=== PATIENT | male | born 1975 | race Caucasian/White ===

== ENCOUNTER 2024-06-26 11:08 | Outpatient (AMB) | payer OTHER, SELFPAY ==
--- NOTE | 2024-06-26 11:10 | MHC.PC.OV ---
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 Intake Note: patient here for new patient visit Home Care Administrator Required: No Allergies Penicillins Allergy (Mild, Verified 06/26/24 11:38) Hives Medication List - Last Reconciled 06/26/24 by Kailee Wilson, ADMINISTRATIVE SUPPORT COORDINATOR cetirizine (Zyrtec) 10 mg PO DAILY PRN Tobacco use date assessed: 06/26/24 Dental Screening Dental Screen Date: 06/26/24 Did you have a dental visit in the last 12 months?: Yes Did you have a dental problem in the last 6 months where you did not have access to dental care?: No Was dental information given to patient?: Patient has dentist HPI HPI Comments History of Present Illness Details 49-year-old male presents to establish care. Prior PCP? - Dr Hanson Volcano Last office visit/CPE - 6-7 years Labs - 04/2024 for his employer Acute issue(s) - Left Achilles tendon rupture; resulted from playing football in early April; wears ortho boot; had surgical repair of the left achilles on 04/19/2024 at [place]. Currently doing PT twice weekly. Followed by Dr. Mccray, [facility], [place], [place]. Past Medical History - Sinusitis - IBS - Left Achilles tendon rupture Surgical History - Right rotator cuff surgery - Left Achilles tendon surgical repair Family History - Dad: Hyperlipidemia - Mom: Skin cancer - PGM: Diabetes Social History - Nonsmoker. Does not vape. Drinks 2-3 beer/vodka weekly. Denies recreational drug use - Has been making healthy dietary choices. Exercises routinely. Generally sleep well Health maintenance - Last eye exam was 08/2023 - Last dental visit was in 04/2024 - Last tetanus vaccine was in 12/01/2023 - He has not been vaccinated for shingles; recommend shingles vaccine; he may get the vaccine from a local pharmacy - Has not been vaccinated for the flu this season; declines vaccination - He has never had a colonoscopy [facility] Medical History (Updated 06/26/24 @ 12:13 by Merle Garrido) IBS (irritable bowel syndrome) Sinusitis Surgical History (Updated 06/26/24 @ 12:17 by Merle Garrido) S/P right rotator cuff repair Family History (Updated 06/26/24 @ 11:33 by Merle Garrido) Father High cholesterol Paternal Grandmother Diabetes Mother Skin cancer Brother Skin cancer Social History Housing: House Patient Tobacco Use Status: Never used Tobacco e-Cigarette/Vaping Use: Never Used Second Hand Smoke Exposure: No service: No Current occupational status: employed 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 1. Little interest or pleasure in doing things: not at all 2. Feeling down, depressed, or hopeless: not at all 3. Trouble falling or staying asleep, or sleeping too much: not at all 4. Feeling tired or having little energy: not at all 5. Poor appetite or overeating: not at all 6. Feeling bad about yourself - or that you are a failure or have let yourself or your family down: not at all 7. Trouble concentrating on things, such as reading the newspaper or watching television: not at all 8. Moving or speaking so slowly that other people could have noticed. Or the opposite - being so fidgety or restless that you have been moving around a lot more than usual: not at all 9. Thoughts that you would be better off or of hurting yourself in some way: not at all Total score: 0 Depression Screening Interpretation: Negative Depression Screening Done: Yes 50863 - PHQ-9 Billing: Yes Source: Developed by Drs. Arsen Perez, Malka Grider, Manpreet Johnson and colleagues, with an educational zehra from [employer]. Thrive Questionnaire Date Thrive assessed: 06/26/24 I am a: Patient What is your living situation today?: I have a steady place to live Within the past 12 months, did the food you bought not last and you didn't have the money to get more?: Never true Within the past 12 months, did you worry whether your food would run out before you got money to buy more?: Never true Do you have trouble paying for medicines?: No Do you have trouble getting transportation to medical appointments?: No Do you have trouble paying your heating and electricity bill?: No Do you have trouble taking care of your child, family member or friend?: No Do you have trouble with day-to-day activities such as bathing, preparing meals, shopping, managing finances, etc.?: No Are you currently unemployed and looking for a job?: No Are you interested in more education?: No Please select the resources that you would like help with: None Currently or been in a relationship where the following occur: No concerns reported THRIVE Score: 0 AUDIT C Alcohol Use Questionnaire (AUDIT-C) 1. How often do you have a drink containing alcohol?: 2-3 times a week 2. How many drinks containing alcohol do you have on a typical day when you are drinking?: 1 or 2 3. How often do you have six or more drinks on one occasion?: Less than monthly Total Score: 4 Score Reviewed/Action Taken: Yes JENIFFER-7 AMB Questionnaire JENIFFER-7 Date JENIFFER - 7 assessed: 06/26/24 Feeling nervous, anxious, or on edge: 0 = Not at all Not being able to stop or control worryin = Not at all Worrying too much about different things: 0 = Not at all Trouble relaxin = Not at all Being so restless that it is hard to sit still: 0 = Not at all Becoming easily annoyed or irritable: 0 = Not at all Feeling afraid as if something awful might happen: 0 = Not at all Total JENIFFER-7 score (0-4 normal; 5-9 mild; 10-14 moderate; 15-21 severe): 0 Source: Developed by Drs. Arsen Perez, Malka Grider, Manpreet Johnson and colleagues, with an educational zehra from [employer]. JENIFFER-7 Assessment Billing JENIFFER-7 Assessment Tool: JENIFFER-7 Assessment 77400 Review of Systems Const Details: Denies chills, Denies fatigue, Denies fever(s), Denies headache(s) and Denies weakness HEENT Denies change in vision, Denies dizziness, Denies headache(s), Denies hearing loss, Denies nasal congestion, Denies sinus pain, Denies sinus pressure and Denies sore throat Card Denies chest pain, Denies lightheadedness, Denies dyspnea and Denies other (palpitations) Resp Denies cough, Denies dyspnea and Denies wheezing GI Denies abdominal pain, Denies melena, Denies hematochezia, Denies change in bowel habits, Denies dyspepsia and Denies nausea Denies hematuria and Denies dysuria Musc Denies abnormal gait, Denies myalgias, Denies arthralgias, Denies numbness and Denies tingling Skin/Breast Denies rash, Denies unusual bruising and Denies wounds Neuro Denies abnormal gait, Denies dizziness, Denies headache(s), Denies memory loss, Denies numbness, Denies Sensory deficit (Neuro), Denies tingling and Denies weakness Psych Denies anxiety, Denies depression and Denies memory loss Endo Denies cold intolerance, Denies fatigue, Denies heat intolerance, Denies polydipsia and Denies polyuria Bernabe/Lymph Denies easy bleeding and Denies easy bruising Aller/Immun Denies wheezing Physical exam (Primary Care) Vital Signs: Last Vital Signs Temp 98.5 F 06/26/24 11:17 Pulse 75 06/26/24 11:17 Resp 16 06/26/24 11:17 BP 130/80 06/26/24 11:17 Pulse Ox 97 06/26/24 11:17 Oxygen Delivery Method Room Air 06/26/24 11:17 BMI result Body Mass Index 30.3 Tobacco/Smoking Status: Tobacco use Status Tobacco use date assessed 06/26/24 06/26/24 11:16 Patient Tobacco Use Status Never used Tobacco 06/26/24 11:16 e-Cigarette/Vaping Use Never Used 06/26/24 11:16 PHQ-9: PHQ-9 Score PHQ-9: Total score 0 06/26/24 11:41 Depression Screening Interpretation: Negative Thrive Assessment: Date of Thrive Assessment Date Thrive assessed 06/26/24 06/26/24 11:12 Currently or been in a relationship where the following occur: No concerns reported Const Other: General: no acute distress, well developed, alert and awake Nutritional Appearance: well nourished Orientation/consciousness: patient oriented x3 HENMT Head: Yes normocephalic and Yes atraumatic Ears: hearing grossly normal bilaterally and TM's normal bilaterally General nose exam: Normal external nose present and Normal nares present Mouth: Normal oral and palatal mucosa present and moist mucous membranes Teeth and gingiva: dentition normal Throat: Yes oropharynx normal Eyes Pupils: Equal, round and reactive pupils present and Pupil accommodation reflex normal EOM: EOMs intact bilaterally Neck Neck: Yes normal visual inspection, Yes no lymphadenopathy and Yes trachea midline Thyroid: Thyroid normal Carotids: no bruits Lymphatic: no lymphadenopathy noted Chest Chest palpation & inspection: normal inspection of the chest Resp Effort & Inspection: normal respiratory effort Auscultation: clear to auscultation bilaterally Cardio Rate: regular rate Rhythm: regular rhythm Heart sounds: S1 normal heart sound present, S2 normal heart sound present, no gallops, no murmurs and no rubs Bruits: no abdominal aortic bruits and no carotid bruits GI Palpation (GI): No Abdominal aortic bruit present, Soft to palpation, nontender, No hepatosplenomegaly present and No Rebound tenderness present Auscultation: normal bowel sounds General: Yes no CVA tenderness Back/Spine/Pelvis Back: no CVA tenderness Cervical Spine: cervical ROM normal and No Cervical spine tenderness Thoracic/Lumbar Spine: thoraco-lumbar ROM normal, No pain with thoraco-lumbar ROM, No thoracic spinal tenderness and No lumbar spinal tenderness Skin General: warm and dry. Normal skin color. Normal skin turgor Lesions: no lesions Rashes: no rashes Trauma: no lacerations or abrasions Wounds: no wounds Nails: normal Neuro General: patient oriented x3, gait normal and CN's II-XI intact bilaterally Cranial nerves: Yes Equal, round and reactive pupils present Cognition (Neuro): normal cognition Gait exam (Neuro): Normal gait present Motor exam (neuro): 5/5 motor strength present throughout Sensory Exam: No Sensory deficit (Neuro) Deep tendon reflexes (DTR's): Right patellar reflex intensity grade: 2+ and Left patellar reflex intensity grade: 2+ Extrem General: Yes normal to inspection, No edema and No calf tenderness Psych Appearance: grossly normal Affect: normal affect Attitude: cooperative Thought process: Normal thought process present Coding Level of Care Code New Pt Prev Care 40-64y(25006) Diagnoses Normal physical examination, routine Z00.00 Colon cancer screening Z12.11 Prostate cancer screening Z12.5 Rupture of left Achilles tendon S86.012A Laboratory tests ordered as part of a complete physical exam (CPE) Z00.00 Additional Codes JENIFFER-7 Assessment Billing - JENIFFER-7 Assessment Tool: JENIFFER-7 Assessment 83535 ([id number]) PHQ-9 - 29240 - PHQ-9 Billing: Yes ([id number]) Assessment & Plan Assessment & Plan (1) Normal physical examination, routine: Code(s): Z00.00 - Encounter for general adult medical examination without abnormal findings Category: Medical Plan: No significant functional limitations noted. Healthy diet and routine exercise encouraged. Advised to get fasting lab work done 2-3 days before next visit. Follow-up in 2-3 weeks for telehealth visit for labs review or sooner with symptoms or concerns. Verbalized understanding and agreed with the plan. (2) Colon cancer screening: Code(s): Z12.11 - Encounter for screening for malignant neoplasm of colon Category: Medical Plan: He has never had a colonoscopy. Referred to [facility] gastroenterology for a colonoscopy. (3) Prostate cancer screening: Code(s): Z12.5 - Encounter for screening for malignant neoplasm of prostate Category: Medical Plan: PSA lab ordered. (4) Rupture of left Achilles tendon: Code(s): S86.012A - Strain of left Achilles tendon, initial encounter Category: Medical Plan: No acute symptoms. Currently wearing Ortho boots. Continue PT and follow with Orthopedics as planned. (5) Laboratory tests ordered as part of a complete physical exam (CPE): Code(s): Z00.00 - Encounter for general adult medical examination without abnormal findings Category: Medical Plan: Fasting labs ordered as part of a complete physical exam. Advised to fast for at least 10 hours before getting labs drawn. May drink water Verbalized understanding and agreed with treatment plan. Orders: Orders Complete Blood Count Auto Diff Today Z00.00 - Encounter for general adult medical examination without abnormal findings Comprehensive Mereta. Panel Fast Today Z00.00 - Encounter for general adult medical examination without abnormal findings UA CC w/rflx Micro + Cult Today Z00.00 - Encounter for general adult medical examination without abnormal findings PSA, Ultra Sensitive Today Z12.5 - Encounter for screening for malignant neoplasm of prostate Lipid Panel Today Z00.00 - Encounter for general adult medical examination without abnormal findings TSH reflex Free T4 Today Z00.00 - Encounter for general adult medical examination without abnormal findings Microalbumin, Random (w Creat) Today Z00.00 - Encounter for general adult medical examination without abnormal findings Referrals Gastroenterology Referral Z12.11 - Encounter for screening for malignant neoplasm of colon
--- OUTSIDE RECORDS SUMMARY | 2024-06-26 11:10 | XMS_ITS | Data Portability ---
Author Organization [place] [facility] Roberto Banuelos AONE Morgan Address [address] [place] [address] Care Team Providers Care Litigation Services Manager Name Role Phone LISA LAM Referring Provider [phone] JULIO CÉSAR KISER Software Release Engineer [phone] Assessment Encounter Date Assessment Date Assessment LastModified by Organization Details LastModified Time 04/18/2024 04/18/2024 He sustained a left Achilles tendon rupture during a work event 1 day ago. We discussed operative versus nonoperative management. He understands the outcomes are near identical. He is leaning toward surgical repair however he will talk with his fianc??e. He was consented for a left Achilles tendon repair tentatively for 04/19/2024. If he does not wish to proceed with this date we could tentatively perform this on 05/03/2024. Additionally he may opt to treat this nonoperatively. Today he was placed into a tall cam boot with heel lifts. He can remove this at this time for shower and sleep if desired. Postoperatively he will be on oxycodone, 5 tablets, Tylenol, Toradol and aspirin for DVT prophylaxis. These will be sent to the pharmacy today. Postoperatively he will be nonweightbearing for 2 weeks in a splint and then will transition back to the cam boot with heel lifts. Will plan to follow-up 2 weeks postoperatively. He will contact the office immediately should he decide not to proceed with surgery tomorrow Risks of surgery and alternatives to surgery were discussed with the patient. These risks include but are not limited to damage to nerves or blood vessels, infection, wound healing problems, chronic pain, stiffness, symptomatic hardware, nonunion, malunion, need for additional surgery, blood clot or pulmonary embolism, anesthesia, heart attack, stroke, . The patient understood these risks and alternatives and elected to proceed with operative interventions. Informed consent was obtained. Patient was prescribed a tall cam boot for above diagnosis. The patient is ambulatory but has weakness and/or instability which requires stabilization from this semi-rigid / rigid orthosis to improve their function. Patient was seen and evaluated by Dominique Ly PA-C in indirect conjunction with Documenting Provider: Ethel Mccray MD He/She agrees with history, physical examination, tests/diagnostic imaging, and treatment plan [email or web address] Not available 04/18/2024 11:22:04 05/02/2024 05/02/2024 The patient is doing well two weeks post operatively following his left achilles tendon repair. He was transitioned to a tall cam boot today with heel lifts. The boot is to be treated like a cast and will not be removed at this time. They may weightbear as tolerated in the cam boot with or without an assistive device. Continue with DVT prophylaxis for an additional 2 weeks. Plan to follow up in 4 weeks for repeat evaluation, imaging not needed Patient was seen and evaluated by Dominique Ly PA-C in indirect conjunction with Documenting Provider: Ethel Mccray MD He/She agrees with history, physical examination, tests/diagnostic imaging, and treatment plan [email or web address] Not available 05/02/2024 10:25:18 05/30/2024 05/30/2024 He is doing well now 6 weeks following their achilles tendon repair. A lift will be removed today with initiation of physical therapy. A referral and location recommendations were provided at today's visit. The remaining removed at 8 weeks post operatively. Once 10 weeks post operatively they may begin to wean to regular footwear with the assistance of physical therapy. Plan to follow up in 6 weeks for repeat evaluation, imaging not needed at that time Not available 06/02/2024 18:56:09 Plan of Treatment Reminders Order Date Submit Date Provider Last Modified By Organization Details Last Modified Time Details Appointments POST-OP 2024 09:00A M Ethel Mccray MD Not available Not available Not available Lab None recorded. Referral None recorded. Procedures None recorded. Surgeries orthopaed ic surgery (SURG) 2023 024 [facility] Not available 04/22/2024 10:34:30 Imaging XR, tibia + fibula, 2 view 2023 024 [email or web address], [address], [place], [address], 04/18/2024 11:58:10 Medication Orders None recorded. Patient TargetsNo targets recorded. Patient Instructions Encounter Date Encounter Id Patient Instructions Last Modified By Organization Details Last Modified Time 04/18/2024 [id number] X-rays of the left tib-fib were obtained which are negative for acute fracture. [email or web address] Not available 04/18/2024 11:28:34 05/02/2024 [id number] X-rays of the left tib-fib were obtained which are negative for acute fracture. [email or web address] Not available 05/02/2024 10:24:07 05/30/2024 [id number] X-rays of the left tib-fib were obtained which are negative for acute fracture. [email or web address] Not available 05/30/2024 08:21:35 Reason for Referral None Reported. Problems Name Problem SNOMED Code Status Onset Date Resolution Date Notes Provider Name and Address Organization Details Recorded Time Rupture of left Achilles tendon 757296623607541 00 Active 2023 DOMINIQUE LY PA-C [address], [place], [address], [place] [facility] 4 11:22:18 Pain in left lower limb 698667974 Active 2023 DOMINIQUE LY PA-C [address], [place], [address], [place] [facility] 4 10:24:08 Problem Notes None recorded. Procedures Surgical History Date Name Laterality Status Provider Name and Address Organization Details Recorded Time 04/19/20 ORTHOPAEDIC SURGERY (SURG) completed Margaret Johnson [facility] 04/22/2024 10:34:38 Imaging Results None recorded. Procedure Notes None recorded. Medical Equipment None Reported. Allergies Allergen ID Allergen Name Allergen Category Reaction Reaction Severity Criticality Documentation Date Start Date Code Code System Note Provider Name and Address Organization Details Recorded Time 96227 Medicinal product containin g penicilli n and acting as antibacte rial agent (product) medicatio n Not available Not available Not available 04/18/2024 03507 05 SNOMED Javon Grant null, [facility] 4 10:34:02 Medications Name Sig Start Date Stop Date Status Note LastModified by Organization Details LastModified Time azithromycin 250 mg tablet TAKE 2 TABLETS BY MOUTH TODAY, THEN TAKE 1 TABLET DAILY FOR 4 DAYS DIRECTED active Not Available Not Available No t Available acetaminophen 500 mg tablet TAKE 2 TABLETS BY MOUTH 3 TIMES A DAY active Not Available Not Available No t Available ketorolac 10 mg tablet TAKE 1 TABLET BY MOUTH EVERY 6 HOURS NEEDED FOR PAIN active Not Available Not Available No t Available triamcinolone acetonide 0.1 % topical ointment APPLY TO AFFECTED AREA UP TO 3 TIMES A DAY NEEDED active Not Available Not Available No t Available Carmen Aspirin 325 mg tablet TAKE 1 TABLET BY MOUTH EVERY DAY FOR 30 DAYS active Not Available Not Available No t Available oxycodone 5 mg tablet TAKE 1 TABLET BY MOUTH EVERY 6 HOURS active Not Available Not Available No t Available Vitals Date Recorded Body height Body mass index (BMI) Body weight Provider Name and Address Organization Details Last Updated DateTime 04/18/2024 162.56 cm 30.9 kg/m2 00186.63 g Javon Juanita [facility] 04/18/2024 10:33:39 Date Recorded Oxygen saturation Oxygen saturation in Arterial blood by Pulse oximetry Heart rate Systolic blood pressure Diastolic blood pressure Provider Name and Address Organization Details Last Updated DateTime 4 99 % 99 % 65 /min 126 mm[Hg] 84 mm[Hg] DOMINIQUE LY PA-C [address], [place], [address], [place] [facility] 4 11:17:46 Date Recorded Body height Body mass index (BMI) Body weight Provider Name and Address Organization Details Last Updated DateTime 05/02/2024 162.56 cm 30.9 kg/m2 45262.63 g Abeba Ellis [place] [facility] 05/02/2024 10:28:01 Date Recorded Body height Body mass index (BMI) Body weight Provider Name and Address Organization Details Last Updated DateTime 05/30/2024 162.56 cm 30.9 kg/m2 59295.[address] [place] [facility] 05/30/2024 09:11:14 Social History None recorded. Functional Status None recorded. Mental Status None recorded. Family History Nothing Reported. Medical History No medical history recorded. Past Encounters Encounter ID Performer Location Encounter Start Date Encounter Closed Date Diagnosis/Indication Diagnosis SNOMED-CT Code Diagnosis ICD10 Code [id number] [facility]ly [facility] [address],[address] [place] [address] 04/18/2024 10:16:30 04/18/2024 11:58:10 Pain in left lower limb 043572845 M79.605 Rupture of left Achilles tendon 9205984938 0669717 S86.012A [id number] Ethel Mccray MD [place] [address] 05/02/2024 10:21:50 05/02/2024 10:51:01 Rupture of left Achilles tendon 5909764062 [id number] S86.012A [id number] Ethel Mccray MD [place] [address] 05/30/2024 09:08:07 05/30/2024 10:02:39 Rupture of left Achilles tendon 8842736389 2466704 S86.012A Health Concerns Section Related Observation LastModified by Organization Detai ls LastModified Time None Recorded Concern Status LastModified by Organization Details LastModified Time None Recorded Advance Directives Directive None Recorded Payers Encounter Date Sequence Insurance Name Policy Number Policy Perez Covered Member ID Perez Member ID Guarantor Name 04/18/2024 1 [facility] [id number] Curtis Lea [id number] Curtis Lea 05/02/2024 LIBERTAD Lea 05/30/2024 [facility]en Venu Notes Date Note Type Note Provider Name and Address Organization Details Recorded Time 04/18/2024 text/html Date of Injury: 04/17/24 Curtis Lea is a 49 year old male who presents today as a walk in patient for evaluation of his left lower extremity. He felt a pop in his calf while running playing football at a work event yesterday. He has been taking ibuprofen with good improvement. 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 He does not smoke. He drinks 3 alcoholic drinks per week. [address], [place], [address], [facility] 04/18/2024 11:28:36 05/02/2024 text/html Date of Injury: 04/17/24 Date of Surgery: 04/19/24 left achilles tendon repair Curtis Lea is a 49 year old male who presents today for his first postoperative appointment.Is overall doing well. He had a mild fall where he caught his toe but did not slam the heel down. He did not notice any popping sensation at the time. He is in very little discomfort and is only requiring Tylenol. He has been taking aspirin as directed. {{He* She}} denies chest pain, shortness of breath, calf pain, calf swelling or fevers. From 04/18/24 (TK): as a walk in patient for evaluation of his left lower extremity. He felt a pop in his calf while running playing football at a work event yesterday. He has been taking ibuprofen with good improvement. 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 He does not smoke. He drinks 3 alcoholic drinks per week. [address], [place], [address], [facility] 05/02/2024 10:52:46 05/30/2024 text/html Date of Injury: 04/17/24 Date of Surgery: 04/19/24 left achilles tendon repair Curtis Lea is a 49 year old male who presents today for follow-up evaluation now approximately 6 weeks postoperatively. He is overall doing well. His pain is a 1-2 out of 10. {{He* She}} denies chest pain, shortness of breath, calf pain, calf swelling or fevers. From 05/02/24 (TK): for his first postoperative appointment.Is overall doing well. He had a mild fall where he caught his toe but did not slam the heel down. He did not notice any popping sensation at the time. He is in very little discomfort and is only requiring Tylenol. He has been taking aspirin as directed. {{He* She}} denies chest pain, shortness of breath, calf pain, calf swelling or fevers. From 04/18/24 (TK): as a walk in patient for evaluation of his left lower extremity. He felt a pop in his calf while running playing football at a work event yesterday. He has been taking ibuprofen with good improvement. 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 He does not smoke. He drinks 3 alcoholic drinks per week. Ethel Mccray MD [address], [place], [address], [place] [facility] 06/02/2024 18:56:20
--- OUTSIDE RECORDS SUMMARY | 2024-06-26 11:11 | XMS_ITS | Continuity of Care Document ---
Author Organization [place] [facility] Roberto Banuelos AONE [facility] Address [address] [place] [address] Care Team Providers Care End Lathe Operator Name Role Phone LAM LISA Referring Provider [phone] JULIO CÉSAR KISER Ice Guard Inspector Assessment Encounter Date Assessment Date Assessment LastModified [...] physical examination, tests/diagnostic imaging, and treatment plan [email or web address] Not available 04/18/2024 11:22:04 Plan of Treatment Reminders Order Date Submit Date Provider Last Modified By Organization Details Last Modified Time Details Appointments POST-OP 2024 09:00A M Ethel Mccray MD Not available Not available Not available Lab None recorded. Referral None recorded. Procedures None recorded. Surgeries orthopaed ic surgery (SURG) 2023 OMA Not available 04/22/2024 10:34:30 Imaging XR, tibia + fibula, 2 view 2023 024 aamoro [facility], [address], [place], [address], 04/18/2024 11:58:10 Medication Orders None recorded. Patient TargetsNo targets recorded. Patient Instructions Encounter Date Encounter Id Patient Instructions Last Modified By Organization Details Last Modified Time 04/18/2024 [id number] X-rays of the left tib-fib were obtained which are negative for acute fracture. [email or web address] Not available 04/18/2024 11:28:34 Reason for Referral None Reported. Problems Name Problem SNOMED Code Status Onset Date Resolution Date Notes Provider Name and Address Organization Details Recorded Time Rupture of left Achilles tendon 233166995102395 00 Active [address], [place], [address], [place] [facility], [facility] 4 11:22:18 Pain in left lower limb 024122444 Active 2023 DOMINIQUE LY PA-C [address], [place], [address], [place] [facility], [facility] 4 10:24:08 Problem Notes None recorded. Procedures Surgical History Date Name Laterality Status Provider Name and Address Organization Details Recorded Time 04/19/20 24 ORTHOPAEDIC SURGERY (SURG) completed Margaret Johnson [facility] 04/22/2024 10:34:38 Imaging Results None recorded. Procedure Notes None recorded. Medical Equipment None Reported. Allergies Allergen ID Allergen Name Allergen Category Reaction Reaction Severity Criticality Documentation Date Start Date Code Code System Note Provider Name and Address Organization Details Recorded Time Medicinal product containin g penicilli n and acting as antibacte rial agent (product) medicatio n Not available Not available Not available 04/18/2024 22551 05 SNOMED Javon Grant null, [facility], P 4 10:34:02 Medications Name Sig Start [...] Updated DateTime 04/18/2024 162.56 cm 30.9 kg/m2 21209.63 g Javon Grant [facility], P 04/18/2024 10:33:39 Date Recorded Oxygen saturation Oxygen saturation in Arterial blood by Pulse oximetry Heart rate Systolic blood pressure Diastolic blood pressure Provider Name and Address Organization Details Last Updated DateTime 4 99 % 99 % 65 /min 126 mm[Hg] 84 mm[Hg] DOMINIQUE LY PA-C [address], [place], [address], [place] [facility], P 11:17:46 Social History None recorded. Functional Status None recorded. Mental Status None recorded. Family History Nothing Reported. Medical History No medical history recorded. Past Encounters Encounter ID Performer Location Encounter Start Date Encounter Closed Date Diagnosis/Indication Diagnosis SNOMED-CT Code Diagnosis ICD10 Code [id number] [facility] [address] [place] [address] 04/18/2024 10:16:30 04/18/2024 11:58:10 Pain in left lower limb 814974536 M79.605 Rupture of left Achilles tendon 2283462553 4547836 S86.012A Health Concerns Section Related Observation LastModified by Organization Detai ls LastModified Time None Recorded Concern Status LastModified by Organization Details LastModified Time None Recorded Payers Encounter Date Sequence Insurance Name Policy Number Policy Perez Covered Member ID Perez Member ID Guarantor Name 04/18/2024 1 [facility] [id number] Curtis Lea [id number] Curtis Lea Notes Date Note Type Note Provider Name [...] with good improvement. 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 He does not smoke. He drinks 3 alcoholic drinks per week. DOMINIQUE LY PA-C [address], [place], [address], [place] [facility], P 04/18/2024 11:28:36
--- OUTSIDE RECORDS SUMMARY | 2024-06-26 11:11 | XMS_ITS | Continuity of Care Document ---
Author Organization [place] [facility] Roberto Banuelos AONE [place] Address [address] [place] [address] Care Team Providers Care Head Bucker Name Role Phone LISA LAM Referring Provider [phone] JULIO CÉSAR KISER Pricing Supervisor Assessment Encounter Date Assessment Date Assessment LastModified by Organization Details LastModified Time 05/02/2024 05/02/2024 The patient is doing well [...] MD He/She agrees with history, physical examination, tests/diagnosti c imaging, and treatment plan [email or web address] Not available 05/02/2024 10:25:18 Plan of Treatment Reminders Order Date Submit Date Provider Last Modified By Organization Details Last Modified Time Details Appointments POST-O P 025 09:00AM Ethel Mccray MD Not available Not available Not available Lab None record ed. Referral None record ed. Procedures None record ed. Surgeries None record ed. Imaging None record ed. Medication Orders None record ed. Patient TargetsNo targets recorded. Patient Instructions Encounter Date Encounter Id Patient Instructions Last Modified By Organization Details Last Modified Time 05/02/2024 [id number] X-rays of the left tib-fib were obtained which are negative for acute fracture. [email or web address] Not available 05/02/2024 10:24:07 Reason for Referral None Reported. Problems Name Problem SNOMED Code Status Onset Date Resolution Date Notes Provider Name and Address Organization Details Recorded Time Rupture of left Achilles tendon 842876521493073 00 Active 2023 DOMINIQUE LY PA-C [address], [place], [address], [place] [facility] [place], [facility] 4 11:22:18 Pain in left lower limb 393442896 Active 2023 DOMINIQUE LY PA-C [address], [place], [address], [place] [facility] [place], [facility] 4 10:24:08 Problem Notes None recorded. Procedures Surgical History Date Name Laterality Status Provider Name and Address Organization Details Recorded Time 04/19/20 ORTHOPAEDIC SURGERY (SURG) completed Margaret Johnson [facility] [place], P 04/22/2024 10:34:38 Imaging Results None recorded. Procedure Notes None recorded. Medical Equipment None Reported. Allergies Allergen ID Allergen Name Allergen Category Reaction Reaction Severity Criticality Documentation Date Start Date Code Code System Note Provider Name and Address Organization Details Recorded Time 41513 Medicinal product containin g penicilli n and acting as antibacte rial agent (product) medicatio n Not available Not available Not available 04/18/2024 47702 05 SNOMED Javon bundy, [facility] [place], P 4 10:34:02 Medications Name Sig Start [...] Updated DateTime 05/02/2024 162.56 cm 30.9 kg/m2 [address]230.[address] [facility] [place], P 05/02/2024 10:28:01 Social History None recorded. Functional Status None recorded. Mental Status None recorded. Family History Nothing Reported. Medical History No medical history recorded. Past Encounters Encounter ID Performer Location Encounter Start Date Encounter Closed Date Diagnosis/Indication Diagnosis SNOMED-CT Code Diagnosis ICD10 Code [id number] [facility] [address] [place] [address], [address] [place] [address] 04/18/2024 10:16:30 04/18/2024 11:58:10 Pain in left lower limb 261117990 M79.605 Rupture of left Achilles tendon 0209961066 0111359 S86.012A [id number] Ethel Mccray MD [facility] [address] [address] 05/02/2024 10:21:50 05/02/2024 10:51:01 Rupture of left Achilles tendon 2292222742 4001759 S86.012A Health Concerns Section Related Observation LastModified by Organization Detai ls LastModified Time None Recorded Concern Status LastModified by Organization Details LastModified Time None Recorded Payers Encounter Date Sequence Insurance Name Policy Number Policy Perez Covered Member ID Perez Member ID Guarantor Name 05/02/2024 LIBERTAD Lowry Curtis Lea Notes Date Note Type Note Provider Name and Address Organization Details Recorded Time 05/02/2024 text/html Date of Injury: 04/17/24 Date [...] with good improvement. 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 He does not smoke. He drinks 3 alcoholic drinks per week. DOMINIQUE LY PA-C [address], [place], [address], [place] [facility] [place], [facility] 05/02/2024 10:52:46
--- OUTSIDE RECORDS SUMMARY | 2024-06-26 11:11 | XMS_ITS ---
Author Name [facility] Organization Unknown History of Medication Use Medication Directions Dispensed Refills Start Date End Date Stat us azithromycin 250 mg tablet TAKE 2 TABLETS BY MOUTH TODAY, THEN TAKE 1 TABLET DAILY FOR 4 DAYS DIRECTED 06/04/2024 07/09/9999 active Carmen Aspirin 325 mg tablet TAKE 1 TABLET BY MOUTH EVERY DAY FOR 30 DAYS 06/04/2024 07/09/9999 active oxycodone 5 mg tablet TAKE 1 TABLET BY MOUTH EVERY 6 HOURS 05/04/2024 07/09/9999 active aspirin 325 mg tablet TAKE 1 TABLET BY MOUTH EVERY DAY FOR 30 DAYS 05/04/2024 07/09/9999 active ketorolac 10 mg tablet TAKE 1 TABLET BY MOUTH EVERY 6 HOURS NEEDED FOR PAIN 05/04/2024 07/09/9999 active triamcinolone acetonide 0.1 % topical ointment APPLY TO AFFECTED AREA UP TO 3 TIMES A DAY NEEDED 05/04/2024 07/09/9999 active acetaminophen 500 mg tablet TAKE 2 TABLETS BY MOUTH 3 TIMES A DAY 05/04/2024 07/09/9999 active Allergies Allergen Reaction Severity Comment Documented Date Source Statu s PENICILLINS [facility] Problems Problem Status Onset Date Problem Type Date of Resoluti on Source Pain in left lower limb active 2024-05-02 ProblemAct [facility] Rupture of left Achilles tendon active 2024-04-18 ProblemAct [facility]
--- OUTSIDE RECORDS SUMMARY | 2024-06-26 11:11 | XMS_ITS | Continuity of Care Document ---
Author Organization [facility] Roberto Banuelos AONE [place] Address [address] [place] [address] Care Team Providers Care Cloud Infrastructure Architect Name Role Phone LISA LAM Referring Provider JULIO CÉSAR KISER Motorman/Woman [phone] Assessment Encounter Date Assessment Date Assessment LastModified by Organization Details LastModified Time 05/30/2024 05/30/2024 He is doing well now [...] Modified By Organization Details Last Modified Time 05/30/2024 [id number] X-rays of the left tib-fib were obtained which are negative for acute fracture. [email or web address] Not available 05/30/2024 08:21:35 Reason for Referral None Reported. Problems Name Problem SNOMED Code Status Onset Date Resolution Date Notes Provider Name and Address Organization Details Recorded Time Rupture of left Achilles tendon 634522700452340 00 Active 10/10/ 2024 DOMINIQUE BRIONES PA-C [address], [place], [address], [facility] [place], [facility] 4 11:22:18 Pain in left lower limb 282252957 Active 2023 DOMINIQUE BRIONES PA-C [address], [place], [address], [facility] [place], [facility] 4 10:24:08 Problem Notes None recorded. Procedures Surgical History Date Name Laterality Status Provider Name and Address Organization Details Recorded Time 04/19/20 ORTHOPAEDIC SURGERY (SURG) completed Margaret Johnson [facility] 04/22/2024 10:34:38 Imaging Results None recorded. [...] Not available Not available Not available 04/18/2024 16957 05 SNOMED Javon bundy, [facility] [place], [facility] 4 10:34:02 Medications Name Sig Start [...] Updated DateTime 05/30/2024 162.56 cm 30.9 kg/m2 18941.[address] [facility] [place] 05/30/2024 09:11:14 Social History None recorded. Functional Status None recorded. Mental Status None recorded. Family History Nothing Reported. Medical History No medical history recorded. Past Encounters Encounter ID Performer Location Encounter Start Date Encounter Closed Date Diagnosis/Indication Diagnosis SNOMED-CT Code Diagnosis ICD10 Code [id number] Ethel Mccray MD [place] [address] 05/02/2024 10:21:50 05/02/2024 10:51:01 Rupture of left Achilles tendon 6832548170 1940987 S86.012A [id number] Ethel Mccray MD [address] [address] 05/30/2024 09:08:07 05/30/2024 10:02:39 Rupture of left Achilles tendon [id number] [id number] S86.012A Health Concerns Section Related Observation LastModified by Organization Detai ls LastModified Time None Recorded Concern Status LastModified by Organization Details LastModified Time None Recorded Payers Encounter Date Sequence Insurance Name Policy Number Policy Perez Covered Member ID Perez Member ID Guarantor Name 05/30/2024 LIBERTAD Lowry Curtis Lea Notes Date Note Type Note Provider Name and Address Organization Details Recorded Time 05/30/2024 text/html Date of Injury: 04/17/24 Date [...] with good improvement. 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 He does not smoke. He drinks 3 alcoholic drinks per week. Ethel Mccray MD [address], [place], [address], [facility] [place] 06/02/2024 18:56:20
[2024-06-26 11:17] VITALS: BP 130/80; PULSE 75; RESP 16; TEMP 36.9; O2SAT 97; BMI 30.3
== END 2024-06-26 12:05 | disposition home or self-care (01) ==
PROVIDERS: PCP Nurse Practitioner Family; Visit Provider Nurse Practitioner Family
DX: Z00.00 Encounter for general adult medical examination without abnormal findings (principal); Z12.11 Encounter for screening for malignant neoplasm of colon; Z12.5 Encounter for screening for malignant neoplasm of prostate; S86.012A Strain of left Achilles tendon, initial encounter

== ENCOUNTER → 2024-06-26 11:08 | Outpatient (BNVA) | payer OTHER, SELFPAY | PROVIDERS: PCP Nurse Practitioner Family; Visit Provider Nurse Practitioner Family | DX: Z00.00 Encounter for general adult medical examination without abnormal findings (principal); S86.012D Strain of left Achilles tendon, subsequent encounter | CPT/HCPCS: 96127 ==

== ENCOUNTER 2024-07-01 08:30 | Outpatient (REF) | payer OTHER, SELFPAY ==
[2024-07-01 11:21] LABS: Appearance Urine Clear; Color Urine Yellow; Glucose Urine UA Negative (Negative); Leukocyte Esterase Urine Negative (Negative); Nitrite Urine Negative (Negative); PH 5.5 (5.0-9.0); Urine Blood Negative (Negative); Urine Ketones Negative (Negative); Urine Protein Negative (Neg-Trace)
[2024-07-01 11:21] LABS: MANUAL DIFF FLAG NO
[2024-07-01 11:33] LABS: Basophils Percent Auto 0.7 % (0-2); Eosinophils Absolute Auto 0.1 X10*3/uL (0.0-0.4); Hematocrit 39.5 % (42.0-52.0); Hemoglobin 13.9 g/dl (14.0-18.0); Imm Gran Abs Auto 0.05 X10*3/uL (0.00-0.03); Imm Gran Pct Auto 0.9 % (0.0-0.4); Lymphocytes Absolute Auto 2.1 X10*3/uL (1.2-4.9); Lymphocytes Percent Auto 37.2 % (20-40); Mean Corpuscular HGB Conc 35.2 g/dl (31.0-36.0); Mean Corpuscular Hemoglobin 31.7 pg (27.0-33.0); Mean Platelet Volume 10.1 fL (9.4-12.4); Monocytes Absolute Auto 0.6 X10*3/uL (0.1-1.2); Monocytes Percent Auto 10.4 % (2-11); Neutrophils Absolute Auto 2.7 x10*3/uL (2.0-8.3); Neutrophils Percent Auto 48.8 % (45-73); Platelet Count 216 X10*3/uL (160-400); Red Blood Count 4.39 X10*6/uL (4.60-5.80); Red Cell Distribution Width 11.9 % (11.0-16.0); White Blood Count 5.6 X10*3/uL (4.8-10.8)
[2024-07-01 12:08] LABS: Alanine Aminotransferase 55 U/L (0-40); Albumin Level 4.5 g/dL (3.5-5.0); Alkaline Phosphatase 57 U/L (39-117); Anion Gap 10 (12-20); Aspartate Amino Transferase 38 U/L (5-37); Bilirubin Total 0.6 mg/dL (0.0-1.0); Blood Urea Nitrogen 18 mg/dL (9-16); Calcium 9.2 mg/dL (8.4-10.2); Carbon Dioxide 28 mmol/L (22-29); Chloride 108 mmol/L (96-108); Cholesterol 206 mg/dL (<200); Estimated Glomerular Filt Rate > 60; Glucose Fasting 99 mg/dL (60-99); HDL Cholesterol 54 mg/dL (>40); LDL Cholesterol Calculated 127 mg/dL (<100); Sodium 142 mmol/L (135-145); Total Protein 7.8 g/dL (6.5-8.0); Triglycerides 127 mg/dL (<150)
[2024-07-01 12:17] LABS: Creatinine Urine 177.95 mg/dL
[2024-07-01 13:48] LABS: TSH reflex Free T4 1.74 uIU/mL (0.32-4.0)
[2024-07-07 15:24] LABS: PSA, Ultra Sensitive 1.07 ng/mL
== END 2024-07-01 08:31 | disposition home or self-care (01) ==
LOC: HO.WFDLDS 08:30
PROVIDERS: Visit Provider Nurse Practitioner Family
DX: Z00.00 Encounter for general adult medical examination without abnormal findings (principal); Z12.5 Encounter for screening for malignant neoplasm of prostate
CPT/HCPCS: 36415; 80053; 80061; 81003; 82043; 82570; 84153; 84443; 85025

== ENCOUNTER 2024-07-12 11:49 | Outpatient (AMB) | payer OTHER, SELFPAY ==
--- NOTE | 2024-07-12 10:55 | MHC.PC.OV ---
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 He offers no complaints and denies acute symptoms at this time. 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 Current occupational exposures/hazards: No Cognitive needs: No Hearing needs: No Vision needs: Yes Questionnaire Thrive Questionnaire Date Thrive assessed: 06/26/24 I am a: Patient What is your living situation today?: I have a steady place to live Within the past 12 months, did the food you bought not last and you didn't have the money to get more?: Never true Within the past 12 months, did you worry whether your food would run out before you got money to buy more?: Never true Do you have trouble paying for medicines?: No Do you have trouble getting transportation to medical appointments?: No Do you have trouble paying your heating and electricity bill?: No Do you have trouble taking care of your child, family member or friend?: No Do you have trouble with day-to-day activities such as bathing, preparing meals, shopping, managing finances, etc.?: No Are you currently unemployed and looking for a job?: No Are you interested in more education?: No Please select the resources that you would like help with: None Currently or been in a relationship where the following occur: No concerns reported THRIVE Score: 0 JENIFFER-7 AMB Questionnaire JENIFFER-7 Date JENIFFER - 7 assessed: 06/26/24 Source: Developed by Drs. Arsen Perez, Malka Grider, Manpreet Johnson and colleagues, with an educational zehra from [employer]. Review of Systems Const Details: Const Denies chills, Denies fatigue, Denies fever(s), Denies headache(s) and Denies weakness ENT Denies dizziness and Denies headache(s) Card Denies chest pain, Denies lightheadedness, Denies dyspnea and Denies other (Palpitations) Resp Denies cough, Denies dyspnea, Denies wheezing and Denies other ( shortness of breath) GI Denies abdominal pain, Denies melena, Denies hematochezia, Denies change in bowel habits, Denies dyspepsia and Denies nausea Denies hematuria and Denies dysuria Musc Denies abnormal gait, Denies myalgias, Denies arthralgias, Denies numbness and Denies tingling Skin/Breast Denies rash, Denies unusual bruising and Denies wounds Neuro Denies abnormal gait, Denies dizziness, Denies headache(s), Denies memory loss, Denies numbness, Denies Sensory deficit (Neuro), Denies tingling and Denies weakness Psych Denies anxiety, Denies depression, Denies memory loss Endo Denies cold intolerance, Denies fatigue, Denies heat intolerance, Denies polydipsia and Denies polyuria Aller/Immun Denies wheezing Physical exam (Primary Care) Tobacco/Smoking Status: Tobacco use Status Tobacco use date assessed 07/12/24 07/12/24 10:57 Patient Tobacco Use Status Never used Tobacco 07/12/24 10:57 e-Cigarette/Vaping Use Never Used 07/12/24 10:57 Thrive Assessment: Date of Thrive Assessment Date Thrive assessed 06/26/24 07/12/24 10:57 Currently or been in a relationship where the following occur: No concerns reported Const Other: Telehealth visit. No physical exam. Telehealth Telehealth Telehealth Platform: Telephone Location of provider rendering services: practice address Location of patient: address on file Patient Identification confirmed using: Name, : Yes Telehealth method: voice only Patient verbally consented to treatment: Yes Patient verbally consented to billing insurance company: Yes Patient informed of any privacy concerns related to visit: Yes Coding Level of Care Code Tele Est Pt Level 3 (35101) Diagnoses Mild anemia D64.9 Transaminitis R74.01 Hypercholesterolemia E78.00 Time Spent (min) 15 Assessment & Plan Assessment & Plan (1) Mild anemia: Code(s): D64.9 - Anemia, unspecified Category: Medical Plan: Recent RBC and H&H are slightly elevated, 4.39 and 13.9/39.5 respectively; unequivocal. Will repeat CBC and make changes as needed. (2) Transaminitis: Code(s): R74.01 - Elevation of levels of liver transaminase levels Category: Medical Plan: Recent AST and ALT are slightly elevated, 38 and 55 respectively. Likely fatty hepatic steatosis. Healthy diet and routine exercise encouraged; advised to limit fatty foods. Will recheck liver panel; advised to fast for 10-12 hours, may drink water, and get blood work done 2-3 days before his next visit. Follow-up in 3 months or sooner with symptoms or concerns. Verbalized understanding and agreed with treatment plan. (3) Hypercholesterolemia: Code(s): E78.00 - Pure hypercholesterolemia, unspecified Category: Medical Plan: Recent total cholesterol and LDL levels slightly elevated, 206 and 127 respectively. Advised to limit foods high in saturated fat and avoid foods high in trans fat. Routine exercise encouraged. Advised to get fasting lipid panel blood work 2-3 days before his next visit. Verbalized understanding and agreed with the treatment plan. Orders: Orders Complete Blood Count no Diff 3 Months D64.9 - Anemia, unspecified Lipid Panel 3 Months E78.00 - Pure hypercholesterolemia, unspecified Liver Panel 3 Months R74.01 - Elevation of levels of liver transaminase levels
--- OUTSIDE RECORDS SUMMARY | 2024-07-12 13:36 | XMS_ITS | Data Portability ---
Author Organization [facility] Roberto Banuelos AONE [place] Address [address] [place] [address] Care Team Providers Care Money Position Officer Name Role Phone LISA LAM Referring Provider [phone] JULIO CÉSAR KISER Pet Sitter Assessment Encounter Date Assessment Date Assessment LastModified [...] physical examination, tests/diagnostic imaging, and treatment plan [email or web address] Not available 04/18/2024 11:22:04 05/02/2024 05/02/2024 The [...] physical examination, tests/diagnostic imaging, and treatment plan [email or web address] Not available 05/02/2024 10:25:18 05/30/2024 05/30/2024 He [...] at that time Not available 06/02/2024 18:56:09 07/11/2024 07/11/2024 He is now 3 maritza hs postoperatively. He is doing great. He may wean out of the boot completely and into regular shoewear. He may advance to the more strengthening component of his physical therapy protocol. He may continue to gradually advance his activities and begin working on close chain exercises. We discussed that he certainly may ride a bike. He will follow-up in 3 months for repeat evaluation. He does not need any imaging. Not available 07/11/2024 09:55:51 Plan of Treatment Reminders Order Date Submit Date Provider Last Modified By Organization Details Last Modified Time Details Appointments WC FOLLOW-UP 2024 08:30A M Ethel Mccray MD Not available Not available Not available Lab None recorded. Referral None recorded. Procedures None recorded. Surgeries orthopaed ic surgery (SURG) 2023 [facility] Not available 04/22/2024 10:34:30 Imaging XR, tibia + fibula, 2 view 2023 [facility], [address], [place], [address], 04/18/2024 11:58:10 Medication Orders None recorded. Patient TargetsNo targets recorded. Patient Instructions Encounter Date Encounter Id Patient Instructions Last Modified By Organization Details Last Modified Time 04/18/2024 [id number] X-rays of the left tib-fib were obtained which are negative for acute fracture. [email or web address] Not available 04/18/2024 11:28:34 05/02/2024 [id number] X-rays of the left tib-fib were obtained which are negative for acute fracture. Not available 05/02/2024 10:24:07 05/30/2024 [id number] X-rays of the left tib-fib were obtained which are negative for acute fracture. [email or web address] Not available 05/30/2024 08:21:35 07/11/2024 [id number] X-rays of the left tib-fib were obtained which are negative for acute fracture. Not available 07/11/2024 08:22:56 Reason for Referral None Reported. Problems Name Problem SNOMED Code Status Onset Date Resolution Date Notes Provider Name and Address Organization Details Recorded Time Rupture of left Achilles tendon 371835746566231 00 Active 2023 DOMINIQUE LY PA-C [address], [place], [address], [facility] 4 11:22:18 Pain in left lower limb 284244975 Active 2023 DOMINIQUE LY PA-C [address], [place], [address], [facility] 10:24:08 Problem Notes None recorded. Procedures Surgical History Date Name Laterality Status Provider Name and Address Organization Details Recorded Time 04/19/20 ORTHOPAEDIC SURGERY (SURG) completed Margaret Johnson [facility] 04/22/2024 10:34:38 Imaging [...] Not available Not available Not available 04/18/2024 85595 05 SNOMED Javon Wheat [facility], [facility], P 10:34:02 Medications Name Sig Start Date Stop [...] Updated DateTime 04/18/2024 162.56 cm 30.9 kg/m2 [address] [facility] 04/18/2024 10:33:39 Date Recorded Oxygen saturation Oxygen saturation in Arterial blood by Pulse oximetry Heart rate Systolic blood pressure Diastolic blood pressure Provider Name and Address Organization Details Last Updated DateTime 99 % 99 % 65 /min 126 mm[Hg] 84 mm[Hg] DOMINIQUE LY PA-C [address], [facility] [place], [address], [facility] 11:17:46 Date Recorded Body height Body mass index (BMI) Body weight Provider Name and Address Organization Details Last Updated DateTime 05/02/2024 162.56 cm 30.9 kg/m2 74744.[address] [facility] 05/02/2024 10:28:01 Date Recorded Body height Body mass index (BMI) Body weight Provider Name and Address Organization Details Last Updated DateTime 05/30/2024 162.56 cm 30.9 kg/m2 09084.[address] [facility] 05/30/2024 09:11:14 Date Recorded Body height Body mass index (BMI) Body weight Provider Name and Address Organization Details Last Updated DateTime 07/11/2024 162.56 cm 30.9 kg/m2 37061.[address] [facility] 07/11/2024 08:53:08 Social History None recorded. Functional Status None recorded. Mental Status None recorded. Family History Nothing Reported. Medical History No medical history recorded. Past Encounters Encounter ID Performer Location Encounter Start Date Encounter Closed Date Diagnosis/Indication Diagnosis SNOMED-CT Code Diagnosis ICD10 Code [id number] [facility] [address] [place] [address] 04/18/2024 10:16:30 04/18/2024 11:58:10 Pain in left lower limb 667346757 M79.605 Rupture of left Achilles tendon 3786289554 6232216 S86.012A [id number] Ethel Mccray MD [address] [address] 05/02/2024 10:21:50 05/02/2024 10:51:01 Rupture of left Achilles tendon 0059330378 2242056 S86.012A [id number] Ethel Mccray MD [address] [address] 05/30/2024 09:08:07 05/30/2024 10:02:39 Rupture of left Achilles tendon 8330185462 2633469 S86.012A [id number] MD JESSENIA Yun [place] [address] [address] 07/11/2024 08:48:39 07/11/2024 09:13:14 Rupture of left Achilles tendon 6704729667 0771876 S86.012A Health Concerns Section Related Observation LastModified by Organization Detai ls LastModified Time None Recorded Concern Status LastModified by Organization Details LastModified Time None Recorded Advance Directives Directive None Recorded Payers Encounter Date Sequence Insurance Name Policy Number Policy Perez Covered Member ID Perez Member ID Guarantor Name 04/18/2024 1 [facility] [id number] Curtis Lea [id number] Curtis Lea 05/02/2024 [facility] Alen Curtis Lea 05/30/2024 [facility] Curtis Lea 07/11/2024 1 [facility] [id number] Curtis Lea [id number] Curtis Lea Notes Date Note Type [...] good improvement. 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 He does not smoke. He drinks 3 alcoholic drinks per week. DOMINIQUE LY PA-C [address], [place], [address], [place] [facility] 04/18/2024 11:28:36 05/02/2024 text/html Date of [...] good improvement. 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 He does not smoke. He drinks 3 alcoholic drinks per week. DOMINIQUE LY PA-C [address], [place], [address], [facility] 05/02/2024 10:52:46 05/30/2024 text/html Date of [...] good improvement. 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 He does not smoke. He drinks 3 alcoholic drinks per week. Ethel Mccray MD [address], [place], [address], [facility] 06/02/2024 18:56:20 07/11/2024 text/html Date of Injury: 04/17/24 Date of Surgery: 04/19/24 left achilles tendon repair Curtis Lea is a 49 year old male who presents today for follow-up evaluation regarding his left Achilles rupture. His pain is on average 0-1. He has been attending physical therapy for the last 4 weeks. He is overall doing quite well. He feels like he is ready to get out of the boot. From 05/30/24 (AJF): for follow-up evaluation now approximately 6 weeks [...] good improvement. 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 He does not smoke. He drinks 3 alcoholic drinks per week. Etehl Mccray MD [address], [place], [address], [facility] 07/11/2024 09:56:04
--- OUTSIDE RECORDS SUMMARY | 2024-07-12 13:36 | XMS_ITS | Continuity of Care Document ---
Author Organization [facility] Roberto Banuelos AONE [place] Address [address] [place] [address] Care Team Providers Care Cotton Picking Machine Operator Name Role Phone LISA LAM Referring Provider JULIO CÉSAR KISER Donkey Engine Firer/Fireman [phone] Assessment Encounter Date Assessment Date Assessment LastModified by Organization Details LastModified Time 07/11/2024 07/11/2024 He is now 3 months postoperatively. He is doing great. He may [...] Details Last Modified Time Details Appointments WC FOLLOW -UP 025 08:30AM Ethel Mccray MD Not available Not available Not available Lab None record ed. Referral None record ed. Procedures None record ed. Surgeries None record ed. Imaging None record ed. Medication Orders None record ed. Patient TargetsNo targets recorded. Patient Instructions Encounter Date Encounter Id Patient Instructions Last Modified By Organization Details Last Modified Time 07/11/2024 [id number] X-rays of the left tib-fib were obtained which are negative for acute fracture. [email or web address] Not available 07/11/2024 08:22:56 Reason for Referral None Reported. Problems Name Problem SNOMED Code Status Onset Date Resolution Date Notes Provider Name and Address Organization Details Recorded Time Rupture of left Achilles tendon 654063778188826 00 Active 2023 DOMINIQUE BRIONES PA-C [address], [place], [address], [facility] [place] 4 11:22:18 Pain in left lower limb 177471212 Active 2023 DOMINIQUE BRIONES PA-C [address], [place], [address], [facility] [place] 4 10:24:08 Problem Notes None recorded. Procedures Surgical History Date Name Laterality Status Provider Name and Address Organization Details Recorded Time 04/19/20 ORTHOPAEDIC SURGERY (SURG) completed Margaret Johnson [facility] [place] 04/22/2024 10:34:38 Imaging Results None recorded. Procedure Notes None recorded. Medical Equipment None Reported. Allergies Allergen ID Allergen Name Allergen Category Reaction Reaction Severity Criticality Documentation Date Start Date Code Code System Note Provider Name and Address Organization Details Recorded Time 82209 Medicinal product containin g penicilli n and acting as antibacte rial agent (product) medicatio n Not available Not available Not available 04/18/2024 14898 05 SNOMED Javon bundy, [facility] [place] [facility] [place], [facility] 4 10:34:02 Medications Name Sig Start [...] Updated DateTime 07/11/2024 162.56 cm 30.9 kg/m2 [address]8311.[address] [facility] [place] 07/11/2024 08:53:08 Social History None recorded. Functional Status None recorded. Mental Status None recorded. Family History Nothing Reported. Medical History No medical history recorded. Past Encounters Encounter ID Performer Location Encounter Start Date Encounter Closed Date Diagnosis/Indication Diagnosis SNOMED-CT Code Diagnosis ICD10 Code [id number] Ethel Mccray MD [address] [place] [address] 07/11/2024 08:48:39 07/11/2024 09:13:14 Rupture of left Achilles tendon 0600718427 [id number] S86.012A Health Concerns Section Related Observation LastModified by Organization Detai ls LastModified Time None Recorded Concern Status LastModified by Organization Details LastModified Time None Recorded Payers Encounter Date Sequence Insurance Name Policy Number Policy Perez Covered Member ID Perez Member ID Guarantor Name 07/11/2024 1 [facility] [id number] Curtis Lea [id number] Curtis Lea Notes Date Note Type Note Provider Name and Address Organization Details Recorded Time 07/11/2024 text/html Date of Injury: 04/17/24 Date [...] alcoholic drinks per week. Ethel Mccray MD [address], [place], [address], [facility] [place] 07/11/2024 09:56:04
== END 2024-07-12 12:09 | disposition home or self-care (01) ==
LOC: HO.HMCFM 11:49
PROVIDERS: PCP Nurse Practitioner Family; Visit Provider Nurse Practitioner Family
DX: D64.9 Anemia, unspecified (principal); R74.01 Elevation of levels of liver transaminase levels; E78.00 Pure hypercholesterolemia, unspecified

== ENCOUNTER → 2024-07-12 11:49 | Outpatient (BNVA) | payer OTHER, SELFPAY | PROVIDERS: PCP Nurse Practitioner Family; Visit Provider Nurse Practitioner Family ==

== ENCOUNTER 2024-10-10 09:37 | Outpatient (REF) | payer OTHER, SELFPAY ==
--- OUTSIDE RECORDS SUMMARY | 2024-10-10 10:04 | XMS_ITS | Clinical Summary ---
Author Organization [address] Address [address] [place] [phone] Care Team Providers Care Shop Worker Name Role Phone Pcp, Does Not Have A Primary Care Provider Unava ilable Active Problems No known active problems Social History Tobacco Use Types Packs/Day Years Used Date Smoking Tobacco: Never Assessed Sex and Gender Information Value Date Recorded Sex Assigned at Male 03/16/2021 10:44 AM EDT Legal Sex Male 2:19 PM EDT Gender Identity Male 03/16/2021 10:44 AM EDT Sexual Orientation Straight 03/16/2021 10 :44 AM EDT Plan of Treatment Health Maintenance Due Date Last Done Comments Tetanus adult (Td q 10,TDAP once) 1994 Lipid disorder screening 2014 Colon cancer screening, Colonoscopy 2019 Diabetes screening 2019 Shingles vaccine (Shingrix) (1 of 2 - Shingrix (RZV) 2 Dose Standard Series) 01/26/2024 Influenza vaccine 02/08/2024 Covid-19 vaccine series ( - 2023- season) 2024 Pneumococcal Vaccine (50+ ye ars) (1 of 1 - PCV) 2039 RSV Immunization (1 - 1-dose 75+ series) 2049 HIV screening Completed 02/26/2021 Hepatitis C screening Completed 02/26/2021 Meningococcal Vaccine Aged Out No ivon nancy eligible based on patient's age to complete this topic Pneumococcal Vaccine (2 - 49 years) Aged Out No longer eligible b ased on patient's age to complete this topic Procedures Procedure Name Priority Date/Time Associated Diagnosis Comments HIV 1/2 AG/AB, W/REFLEXES (Q) Routine 02/26/2021 12:35 PM EDT HEPATITIS PANEL, ACUTE W/REFLEX (Q) Routine 02/26/2021 12:35 PM EDT from Last 3 Months or Most Recently Relevant to Health Maintenance Results * HIV 1/2 ag/ab, w/reflexes (Q) (02/26/2021 12:35 PM EDT) HIV Ag/Ab, 4th Generation NON-REACT SKYLA NON-REACT SKYLA [facility] Comment: HIV-1 antigen and HIV-1/HIV-2 antibodies were not detected. There is no laboratory evidence of HIV infection. PLEASE NOTE: This information has been disclosed to you from records whose confidentiality may be protected by state law. ??If your state requires such protection, then the state law prohibits you from making any further disclosure of the information without the specific written consent of the person to whom it pertains, or as otherwise permitted by law. A general authorization for the release of medical or other information is NOT sufficient for this purpose. ?? For additional information please refer to http://education.Fluoresentric/faq/VOP805 (This link is being provided for informational/ educational purposes only.) The performance of this assay has not been clinically validated in patients less than 2 years old. 02/26/2021 12:3 5 PM EDT 02/26/2021 12:36 PM EDT Narrative Resulting Agency Comment Performing Lab: ?Site ID: [id number] ?Name: [facility] ?Address: [address] [place] [address], [place] [address] ?Director: Brayan Will M.D. Filipe Duke MD LAB BLOOD ORDERABLES Final Res ult [facility] [address] [place], [place] [id number] [place] [address] * Hepatitis panel, acute w/reflex (Q) (02/26/2021 12:35 PM EDT) Hep A IgM NON-REACT SKYLA NON-REACT SKYLA [facility] Comment: For additional information, please refer to http://Jamba!.Fluoresentric/faq/GIY090 (This link is being provided for informational/ educational purposes only.) Hepatitis B Surface Ag NON-REACT SKYLA NON-REACT SKYLA [facility] Hepatitis B Core Ab IgM NON-REACT SKYLA NON-REACT SKYLA [facility] Hepatitis C Ab NON-REACT SKYLA NON-REACT SKYLA [facility] Signal To Cut-Off 0.01 <1.00 [facility] Comment: HCV antibody was non-reactive. There is no laboratory evidence of HCV infection. In most cases, no further action is required. However, if recent HCV exposure is suspected, a test for HCV RNA (test code 04624) is suggested. For additional information please refer to http://Jamba!.Fluoresentric/faq/MJP41g0 (This link is being provided for informational/ educational purposes only.) 02/26/2021 12:3 5 PM EDT 02/26/2021 12:36 PM EDT Narrative Resulting Agency Comment Performing Lab: ?Site ID: [id number] ?Name: [facility] ?Address: [address] [place] [address], [facility] [place] [address] ?Director: Brayan Will M.D. Filipe Duke MD LAB BLOOD ORDERABLES Final Res ult Performing Organization Address City/State/[facility] Co de Phone Number [facility] [address] [place] [address] from Last 3 Months or Most Recently Relevant to Health Maintenance Insurance [facility] Care Teams Shop Worker Relationship Specialty Start Date End Date Pcp, Does Not Have A PCP - General 02/11/21
[2024-10-10 11:58] LABS: Hematocrit 41.5 % (42.0-52.0); Hemoglobin 14.3 g/dl (14.0-18.0); Mean Corpuscular HGB Conc 34.5 g/dl (31.0-36.0); Mean Corpuscular Hemoglobin 31.6 pg (27.0-33.0); Mean Corpuscular Volume 91.8 fL (80.0-98.0); Mean Platelet Volume 10.3 fL (9.4-12.4); Platelet Count 220 X10*3/uL (160-400); Red Blood Count 4.52 X10*6/uL (4.60-5.80); Red Cell Distribution Width 12.1 % (11.0-16.0); White Blood Count 5.7 X10*3/uL (4.8-10.8)
[2024-10-10 12:32] LABS: Alanine Aminotransferase 133 U/L (0-40); Albumin Level 4.4 g/dL (3.5-5.0); Alkaline Phosphatase 69 U/L (39-117); Aspartate Amino Transferase 82 U/L (5-37); Bilirubin Direct 0.2 mg/dL (0.0-0.5); Bilirubin Total 0.6 mg/dL (0.0-1.0); Cholesterol 238 mg/dL (<200); HDL Cholesterol 48 mg/dL (>40); LDL Cholesterol Calculated 141 mg/dL (<100); Total Protein 7.7 g/dL (6.5-8.0); Triglycerides 245 mg/dL (<150)
== END 2024-10-10 09:38 | disposition home or self-care (01) ==
LOC: HO.WFDLDS 09:37
PROVIDERS: Visit Provider Nurse Practitioner Family
DX: E78.00 Pure hypercholesterolemia, unspecified (principal); D64.9 Anemia, unspecified; R74.01 Elevation of levels of liver transaminase levels
CPT/HCPCS: 36415; 80061; 80076; 85027

== ENCOUNTER 2024-10-21 13:58 | Outpatient (AMB) | payer OTHER, SELFPAY ==
--- NOTE | 2024-10-21 13:50 | A.OFFPC_ITS ---
Intake Visit Reasons: anemia, transaminitis, hypercholesterolemia Intake Note: patient here for follow up on anemia, transaminitis, hypercholesterolemia Senior Staff Specialized Employment Required: No Allergies Penicillins Allergy (Mild, Verified 10/21/24 13:51) Hives Tobacco use date assessed: 10/21/24 Dental Screening Dental Screen Date: 10/21/24 Did you have a dental visit in the last 12 months?: Yes Did you have a dental problem in the last 6 months where you did not have access to dental care?: No Was dental information given to patient?: Patient has dentist HPI HPI Comments History of Present Illness Details 49-year-old male presents for a [facility] visit for review of recent lab results. He went on to vacations before his recent blood work. He drank more alcohol and ate unhealthy foods while on vacation. He usually have 2 drinks weekly. He has not been exercising due to having left Achilles tendon repair surgery 6 months ago. He plans on starting exercise gradually. He offers no complaints and denies acute symptoms at this time. 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 Current occupational exposures/hazards: No Cognitive needs: No Hearing needs: No Vision needs: Yes Questionnaire Thrive Questionnaire Date Thrive assessed: 06/26/24 I am a: Patient What is your living situation today?: I have a steady place to live Within the past 12 months, did the food you bought not last and you didn't have the money to get more?: Never true Within the past 12 months, did you worry whether your food would run out before you got money to buy more?: Never true Do you have trouble paying for medicines?: No Do you have trouble getting transportation to medical appointments?: No Do you have trouble paying your heating and electricity bill?: No Do you have trouble taking care of your child, family member or friend?: No Do you have trouble with day-to-day activities such as bathing, preparing meals, shopping, managing finances, etc.?: No Are you currently unemployed and looking for a job?: No Are you interested in more education?: No Please select the resources that you would like help with: None Currently or been in a relationship where the following occur: No concerns reported THRIVE Score: 0 AUDIT C Alcohol Use Questionnaire (AUDIT-C) 2. How many drinks containing alcohol do you have on a typical day when you are drinking?: 1 or 2 3. How often do you have six or more drinks on one occasion?: Less than monthly Total Score: 1 JENIFFER-7 AMB Questionnaire JENIFFER-7 Date JENIFFER - 7 assessed: 06/26/24 Source: Developed by Drs. Arsen Perez, Malka Grider, Manpreet Johnson and colleagues, with an educational zehra from [employer]. Review of Systems Const Details: Denies chills, Denies fatigue, Denies fever(s), Denies headache(s) and Denies weakness Cardiac Denies chest pain, Denies claudication, Denies leg edema, Denies lightheadedness, Denies palpitations, Denies dyspnea, Denies dyspnea on exertion, Denies orthopnea and Denies other (Loss of consciousness) Resp Denies cough, Denies excessive phlegm production, Denies dyspnea, Denies dyspnea on exertion, Denies snoring and Denies wheezing Physical exam (Primary Care) Tobacco/Smoking Status: Tobacco use Status Tobacco use date assessed 10/21/24 10/21/24 13:51 Patient Tobacco Use Status Never used Tobacco 10/21/24 13:51 e-Cigarette/Vaping Use Never Used 10/21/24 13:51 Thrive Assessment: Date of Thrive Assessment Date Thrive assessed 06/26/24 10/21/24 13:51 Currently or been in a relationship where the following occur: No concerns reported Const Other: Patient is alert and oriented x3. Telehealth Telehealth Telehealth Platform: Telephone Location of provider rendering services: practice address Location of patient: address on file Patient Identification confirmed using: Name, : Yes Telehealth method: voice only Patient verbally consented to treatment: Yes Patient verbally consented to billing insurance company: Yes Patient informed of any privacy concerns related to visit: Yes Coding Level of Care Code Tele Est Pt Level 3 (17996) Diagnoses Hyperlipidemia E78.5 Transaminitis R74.01 Mild anemia D64.9 Time Spent (min) 15 Assessment & Plan Assessment & Plan (1) Hyperlipidemia: Code(s): E78.5 - Hyperlipidemia, unspecified Category: Medical Plan: Recent triglycerides is elevated, 245 from 127, total cholesterol is elevated, 238 from 206, LDL is elevated, 141 from 127, HDL is normal. Advised to limit foods high in saturated fat and avoid foods high in trans fat. Routine exercise encouraged. Fast for 10-12 hours, may drink water, and perform lipid panel blood work 2-3 days before next visit. Follow-up for telehealth visit in 2 months. Return sooner with symptoms or concerns. Verbalized understanding and agreed with treatment plan. (2) Transaminitis: Code(s): R74.01 - Elevation of levels of liver transaminase levels Category: Medical Plan: Recent AST level is elevated, 82 from 38, ALT level is elevated, 133 from 55. Hepatic steatosis is likely. Healthy diet, including low-fat encouraged. Will check liver ultrasound and make changes as needed. Verbalized understanding and agreed with the plan. (3) Mild anemia: Code(s): D64.9 - Anemia, unspecified Category: Medical Plan: Recent H&H levels are within normal limit. Will monitor CBC periodically or with related symptoms or concerns. Verbalized understanding and agreed with the plan. Orders: Orders Lipid Panel 2 Months E78.5 - Hyperlipidemia, unspecified US abdomen limited Today R74.01 - Elevation of levels of liver transaminase levels
--- OUTSIDE RECORDS SUMMARY | 2024-10-21 16:14 | XMS_ITS | Data Portability ---
Author Organization [place] [facility] Roberto Banuelos [place] Address [address] [place] [address] Care Team Providers Care Wharf Attendant Name Role Phone LISA LAM Referring Provider JULIO CÉSAR KISER [employer] Operator Assessment Encounter Date Assessment Date Assessment LastModified by Organization Details LastModified Time 04/18/2024 04/18/2024 He sustained a left Achilles tendon rupture during a work event 1 day ago. We discussed operative versus nonoperative management. He understands the outcomes are near identical. He is leaning toward surgical repair however he will talk with his fianc? ? ?e. He was consented for a left Achilles [...] physical examination, tests/diagnostic imaging, and treatment plan [email or web address] Not available 04/18/2024 11:22:04 05/02/2024 05/02/2024 The [...] physical examination, tests/diagnostic imaging, and treatment plan [email or web address] Not available 05/02/2024 10:25:18 05/30/2024 05/30/2024 He [...] need any imaging. Not available 07/11/2024 09:55:51 10/10/2024 10/10/2024 He is now approximately 6 months postoperatively. He is overall doing well. He may continue to attend physical therapy to work on his strengthening. He may gradually advance his activities as he is able and as he regains strength and is able to single limb heel rise. He will follow-up as needed. He may follow-up for an impairment rating 1 year postoperatively if needed by Worker's Compensation. Not available 10/10/2024 10:12:29 Plan of Treatment Reminders Order Date Submit Date Provider Last Modified By Organization Details Last Modified Time Details Appointments None recorded. Lab None recorded. Referral None recorded. Procedures None recorded. Surgeries orthopaedic surgery (SURG) 2023 [facility] Not available 10:34:30 Imaging XR, tibia + fibula, 2 view 2023 [facility], [address], [place], [address], 11:58:10 Medication Orders None recorded. Patient TargetsNo targets recorded. Patient Instructions Encounter Date Encounter Id Patient Instructions Last Modified By Organization Details Last Modified Time 04/18/2024 [id number] X-rays of the left tib-fib were obtained which are negative for acute fracture. [email or web address] Not available 04/18/2024 11:28:34 05/02/2024 [id number] X-rays of the left tib-fib were obtained which are negative for acute fracture. [email or web address] Not available 05/02/2024 10:24:07 05/30/2024 [id number] X-rays of the left tib-fib were obtained which are negative for acute fracture. [email or web address] Not available 05/30/2024 08:21:35 07/11/2024 [id number] X-rays of the left tib-fib were obtained which are negative for acute fracture. Not available 07/11/2024 08:22:56 10/10/2024 [id number] X-rays of the left tib-fib were obtained which are negative for acute fracture. [email or web address] Not available 10/10/2024 08:18:24 Reason for Referral None Reported. Problems Name Problem SNOMED Code Status Onset Date Resolution Date Notes Provider Name and Address Organization Details Recorded Time Rupture of left Achilles tendon 949455430803975 00 Active 2023 DOMINIQUE LY PA-C [address], [place], [address], [place] [facility], [facility] 4 11:22:18 Pain in left lower limb 857888935 Active 2023 DOMINIQUE LY PA-C [address], [place], [address], [place] [facility], [facility] 4 10:24:08 Problem Notes None recorded. Procedures Surgical History Date Name Laterality Status Provider Name and Address Organization Details Recorded Time 04/19/20 ORTHOPAEDIC SURGERY (SURG) completed Margaret Johnson [facility], [facility] 04/22/2024 10:34:38 Imaging Results None recorded. Procedure Notes None recorded. Medical Equipment None Reported. Allergies Allergen ID Allergen Name Allergen Category Reaction Reaction Severity Criticality Documentation Date Start Date Code Code System Note Provider Name and Address Organization Details Recorded Time 04276 Product containin g penicilli n (product) medicatio n Not available Not available Not available 04/18/2024 86644 8001 SNOMED Javon bundy, [facility], [facility] 4 10:34:02 Medications Name Sig Start [...] Updated DateTime 04/18/2024 162.56 cm 30.9 kg/m2 66371.63 g Javon Grant [facility], P 04/18/2024 10:33:39 Date Recorded Oxygen saturation Oxygen saturation in Arterial blood by Pulse oximetry Heart rate Systolic blood pressure Diastolic blood pressure Provider Name and Address Organization Details Last Updated DateTime 99 % 99 % 65 /min 126 mm[Hg] 84 mm[Hg] DOMINIQUE LY PA-C [address], [place], [address], [facility], [facility] 4 11:17:46 Date Recorded Body height Body mass index (BMI) Body weight Provider Name and Address Organization Details Last Updated DateTime 05/02/2024 162.56 cm 30.9 kg/m2 16310.63 g Abeba Ellis [facility], P 05/02/2024 10:28:01 Date Recorded Body height Body mass index (BMI) Body weight Provider Name and Address Organization Details Last Updated DateTime 05/30/2024 162.56 cm 30.9 kg/m2 26367.63 g Javon Grant [facility], P 05/30/2024 09:11:14 Date Recorded Body height Body mass index (BMI) Body weight Provider Name and Address Organization Details Last Updated DateTime 07/11/2024 162.56 cm 30.9 kg/m2 75887.63 g Abeba Ellis [facility] 07/11/2024 08:53:08 Date Recorded Body height Body mass index (BMI) Body weight Provider Name and Address Organization Details Last Updated DateTime 10/10/2024 162.56 cm 30.9 kg/m2 69065.63 g Javon Grant [facility], P 10/10/2024 08:27:29 Social History None recorded. Functional Status None recorded. Mental Status None recorded. Family History Nothing Reported. Medical History No medical history recorded. Past Encounters Encounter ID Performer Location Encounter Start Date Encounter Closed Date Diagnosis/Indication Diagnosis SNOMED-CT Code Diagnosis ICD10 Code Diagnosis Note [id number] [facility], ite [address] [place] [address] 9 04/18/2024 10:16:30 04/18/2024 11:58:10 Pain in left lower limb 786539572 M79.605 Rupture of left Achilles tendon 1705848278 0101701 S86.012A [id number] [place] [address] 05/02/2024 10:21:50 05/02/2024 10:51:01 Rupture of left Achilles tendon 9012673908 0728596 S86.012A [id number] Ethel Mccray [place] [address] 05/30/2024 09:08:07 05/30/2024 10:02:39 Rupture of left Achilles tendon 0792407277 [id number] S86.012A [id number] MD [place] [address] 07/11/2024 08:48:39 07/11/2024 09:13:14 Rupture of left Achilles tendon 7407018399 [id number] S86.012A [id number] Ethel Mccray MD [place] [address] 10/10/2024 08:23:03 10/10/2024 08:42:30 Rupture of left Achilles tendon 4960745108 5257504 S86.012A Health Concerns Section Related Observation LastModified by Organization Detai ls LastModified Time None Recorded Concern Status LastModified by Organization Details LastModified Time None Recorded Advance Directives Directive None Recorded Payers Encounter Date Sequence Insurance Name Policy Number Policy Perez Covered Member ID Perez Member ID Guarantor Name 04/18/2024 1 [facility] [id number] Curtis Lea [id number] Curtis Lea 05/02/2024 LIBERTAD Lea 05/30/2024 [facility]/11/[address] [place] [address] [id number] Curtis Lea [id number] 1 Curtis Lea 10/10/2024 [facility] Eli Lowry Curtis Lea Notes Date Note Type [...] with good improvement. 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 He does not smoke. He drinks 3 alcoholic drinks per week. [address], [place], [address], [place] [facility], [facility] 04/18/2024 11:28:36 05/02/2024 text/html Date of [...] with good improvement. 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 He does not smoke. He drinks 3 alcoholic drinks per week. [address], [place], [address], [place] [facility], [facility] 05/02/2024 10:52:46 05/30/2024 text/html Date of [...] with good improvement. 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 He does not smoke. He drinks 3 alcoholic drinks per week. Ethel Mccray MD [address], [place], [address], [place] [facility], [facility] 06/02/2024 18:56:20 07/11/2024 text/html Date of [...] with good improvement. 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 He does not smoke. He drinks 3 alcoholic drinks per week. Ethel Mccray MD [address], [place], [address], [place] [facility], [facility] 07/11/2024 09:56:04 10/10/2024 text/html Date of Injury: 04/17/24 Date of Surgery: 04/19/24: Left achilles tendon repair Curtis Lea is a 49 year old male who presents today for follow-up regarding his left Achilles rupture. He is now approximately 6 months postoperatively. He is overall doing well. He has continued to attend physical therapy. He did recently have difficulty walking in the sand in [place]. From 07/11/24 ([facility]): for follow-up evaluation regarding his left Achilles rupture. His pain is on average 0-1. He has been attending physical therapy for the last 4 weeks. He is overall doing quite well. He feels like he is ready to get out of the boot. From 05/30/24 ([facility]): for follow-up evaluation now approximately 6 weeks [...] with good improvement. 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 He does not smoke. He drinks 3 alcoholic drinks per week. Ethel Mccray MD [address], [place], [address], [place] [facility], [facility] 10/10/2024 10:12:37
--- OUTSIDE RECORDS SUMMARY | 2024-10-21 16:14 | XMS_ITS | Clinical Summary ---
Author Organization [address] Address [address] [place] [address] Care Team Providers Care Payroll And Benefits Specialist Name Role Phone Pcp, Does Not Have [...] ?? For additional information please refer to http://education.Devex/faq/COQ636 (This link is being provided for informational/ educational purposes only.) The performance of this assay has not been clinically validated in patients less than 2 years old. 02/26/2021 12:3 5 PM EDT 02/26/2021 12:36 PM EDT Narrative Resulting Agency Comment Performing Lab: ?Site ID: [id number] ?Name: [facility] ?Address: [address] [place] [address], [place] [address] ?Director: Brayan Will M.D. Filipe Duke MD LAB BLOOD ORDERABLES Final Res ult [facility] [address] [place], [place] [id number] [place] [address] * Hepatitis panel, acute w/reflex (Q) (02/26/2021 12:35 PM EDT) Hep A IgM NON-REACT SKYLA NON-REACT SKYLA [facility] Comment: For additional information, please refer to http://SalesGossip.Devex/faq/OOY614 (This link is being provided for informational/ [...] a test for HCV RNA (test code 09845) is suggested. For additional information please refer to http://SalesGossip.Devex/faq/EIZ73p1 (This link is being provided for informational/ educational purposes only.) 02/26/2021 12:3 5 PM EDT 02/26/2021 12:36 PM EDT Narrative Resulting Agency Comment Performing Lab: ?Site ID: [id number] ?Name: [facility] ?Address: [address] [place] [address], [facility] [place] [address] ?Director: Brayan Will M.D. Filipe Duke MD LAB BLOOD ORDERABLES Final Res ult Performing Organization Address City/State/[facility] Co de Phone Number [facility] [address] [place] [address] from Last 3 Months or Most Recently Relevant to Health Maintenance Insurance [facility] PL[facility] Care Teams Payroll And Benefits Specialist Relationship Specialty Start Date End Date Pcp, Does Not Have A PCP - General 02/11/21
== END 2024-10-21 15:15 | disposition home or self-care (01) ==
LOC: HO.HMCFM 13:58
PROVIDERS: PCP Nurse Practitioner Family; Visit Provider Nurse Practitioner Family
DX: E78.5 Hyperlipidemia, unspecified (principal); R74.01 Elevation of levels of liver transaminase levels; D64.9 Anemia, unspecified

== ENCOUNTER → 2024-10-21 13:58 | Outpatient (BNVA) | payer OTHER, SELFPAY | PROVIDERS: PCP Nurse Practitioner Family; Visit Provider Nurse Practitioner Family | DX: Z13.89 Encounter for screening for other disorder (principal) ==

== ENCOUNTER 2024-11-04 08:32 | Outpatient (AMB) | payer OTHER, SELFPAY ==
[2024-11-04 08:45] VITALS: BP 144/84; PULSE 86; O2SAT 98; BMI 28.8
--- NOTE | 2024-11-04 08:45 | MHC.OFFVIS ---
Vital Signs 11/04/24 08:45 Height 5 ft 7 in Weight 184 lb BMI 28.8 BP 144/84 H Blood Pressure Location Rt brachial Position Sitting Pulse 86 Pulse Source Pulse Oximeter Pulse Oximetry (%) 98 Oxygen Delivery Method Room Air Intake Visit Reasons: colonoscopy screening Intake Note: NEW PATIENT for initial colo screening, routine. Chief Complaint; Pt denies any GI sx or concerns at this time. 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 male with past medical history of hyperlipidemia,, transaminitis is here today for pre colonoscopy screening.? Patient was sent to us by his PCP.? This is his first colonoscopy screening.? Patient denies any gastrointestinal symptoms in the past or at present. Maternal grandmother history of CRC, and patient's mom had polyps on her colonoscopy.? Denies history of difficulty with sedation or anesthesia in the past.? Negative for history of sleep apnea.? Denies any history of cardiac, renal, pulmonary, or hepatic disease.?? No history of infectious? diseases like hepatitis A, B, C, HIV or tuberculosis.? Patient is not on any anticoagulation. Recent labs show transaminitis and hypercholesteremia. Laboratory Tests 07/01/24 10/10/24 08:33 09:38 Total Bilirubin 0.6 AST 38 H 82 H ALT 55 H 133 H Alkaline Phosphatase 57 69 Triglycerides 245 H Cholesterol 238 H LDL Cholesterol, Calc 141 H PFSH Medical History IBS (irritable bowel syndrome) Sinusitis Surgical History H/O Achilles tendon repair S/P right rotator cuff repair Family History Father High cholesterol Paternal Grandmother Diabetes Mother Skin cancer Brother Skin cancer Social History Housing: House Patient Tobacco Use Status: Never used Tobacco e-Cigarette/Vaping Use: Never Used Second Hand Smoke Exposure: No service: No Current occupational status: employed 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 Current occupational exposures/hazards: No Cognitive needs: No Hearing needs: No Vision needs: Yes Review of Systems Const Denies weight gain and Denies weight loss ENT Reports no additional complaints, Denies dysphagia and Denies odynophagia Card Reports no additional complaints Resp Reports no additional complaints GI Denies abdominal pain, Denies belching, Denies melena, Denies bloating, Denies change in bowel habits, Denies dysphagia, Denies excessive flatus, Denies dyspepsia, Denies heartburn, Denies diarrhea, Denies loose stools, Denies nausea, Denies odynophagia and Denies vomiting Reports no additional complaints Musc Reports no additional complaints Neuro Reports no additional complaints Psych Reports no additional complaints Endo Reports no additional complaints Physical Exam Vital Signs: Last Vital Signs Pulse 86 11/04/24 08:45 BP 144/84 H 11/04/24 08:45 Pulse Ox 98 11/04/24 08:45 Oxygen Delivery Method Room Air 11/04/24 08:45 BMI result Body Mass Index 28.8 Const General: healthy appearing, no acute distress and well developed Nutritional Appearance: well nourished Orientation/consciousness: patient oriented x3 Resp Effort & Inspection: normal respiratory effort, able to speak in complete sentences, no tracheal deviation and symmetric chest movement Auscultation: clear to auscultation bilaterally Cardio Rate: regular rate GI Inspection: Yes normal to inspection and No distended Palpation (GI): Soft to palpation, not firm, nontender and No hepatosplenomegaly present Auscultation: normal bowel sounds General: Yes no CVA tenderness Back/Spine/Pelvis Back: no CVA tenderness Skin General skin exam: elasticity normal, turgor normal and dry skin Neuro General: patient oriented x3 Psych Appearance: grossly normal Mental Status: mental status grossly normal Assessment & Plan Assessment & Plan (1) Colon cancer screening: Code(s): Z12.11 - Encounter for screening for malignant neoplasm of colon Category: Medical Plan Patient denies any GI, cardiac or respiratory symptoms.? Denies any issues with anesthesia in the past.? Denies any history of sleep apnea.? No history infectious diseases in the past or present.? Not on any anticoagulation therapy.? Family history of CRC.? Patient denies melena, hematochezia, unintentional weight loss or ribbon like stools.? History of transaminitis and triglyceridemia. Will recheck patient's labs next visit and if he continues to have transaminitis workup recommended. Discussed at length the pre-procedure,? prep, diet & medications as well as what to expect prior, during and after the procedure.?? Stressed the importance of good bowel prep.? Recommended the use of Vaseline or Calmoseptine OTC & baby wipes with bowel movements to promote comfort.? ?Patient verbalizes understanding and agrees to plan of care.? He was given the opportunity to ask questions and all questions answered.? We will see him after the procedure.? Medications: New polyethylene glycol 3350 (Miralax) As directed by gastroenterology department at [facility] 238 grams PO ONCE 238 grams 0RF Z12.11 - Encounter for screening for malignant neoplasm of colon bisacodyl (Dulcolax (bisacodyl)) take 4 tabs at noon the day before your colonoscopy 20 mg (4 x 5 mg) PO ONCE 1 day 4 tabs 0RF Z12.11 - Encounter for screening for malignant neoplasm of colon Coding Level of Care Code New Pt Level 3 (42118) Diagnoses Colon cancer screening Z12.11 Time Spent (min) 40 Comment 30 minutes spent with patient and additional 10 minutes spent reviewing his records
--- OUTSIDE RECORDS SUMMARY | 2024-11-04 09:01 | XMS_ITS | Clinical Summary ---
Author Organization [address] Address [address] [place] [address] Care Team Providers Care Carpenter Helper Hardwood Flooring Name Role Phone Pcp, Does Not Have [...] cancer screening, Colonoscopy 2019 Diabetes screening 2019 Pneumococcal Vaccine (50+ ye ars) (1 of 1 - PCV) 01/26/2024 Shingles vaccine (Shingrix) (1 of 2 - Shingrix (RZV) 2 Dose Standard Series) 01/26/2024 Covid-19 vaccine series ( - 2023- season) 2024 Influenza vaccine 03/10/2025 RSV Immunization (1 - 1-dose 75+ series) [...] ?? For additional information please refer to http://education.iloho/faq/JTV729 (This link is being provided for informational/ educational purposes only.) The performance of this assay has not been clinically validated in patients less than 2 years old. 02/26/2021 12:3 5 PM EDT 02/26/2021 12:36 PM EDT Narrative Resulting Agency Comment Performing Lab: ?Site ID: [email or web address] ?Name: [email or web address] ?Address: [address] [place] [address], [place] [address] ?Director: Brayan Will M.D. Filipe Duke MD LAB BLOOD ORDERABLES Final Res ult [facility] [address] [place], [place] [id number] [place] [address] * Hepatitis panel, acute w/reflex (Q) (02/26/2021 12:35 PM EDT) Hep A IgM NON-REACT SKYLA NON-REACT SKYLA [facility] Comment: For additional information, please refer to http://Presentigo.iloho/faq/KNQ667 (This link is being provided for informational/ [...] a test for HCV RNA (test code 72807) is suggested. For additional information please refer to http://Presentigo.iloho/faq/MJM96n1 (This link is being provided for informational/ educational purposes only.) 02/26/2021 12:3 5 PM EDT 02/26/2021 12:36 PM EDT Narrative Resulting Agency Comment Performing Lab: ?Site ID: [email or web address] ?Name: [email or web address] ?Address: [address] [place] [address], [facility] [place] [address] ?Director: Brayan Will M.D. Filipe Duke MD LAB BLOOD ORDERABLES Final Res ult Performing Organization Address City/State/[facility] Co de Phone Number [facility] [address] [place] [address] from Last 3 Months or Most Recently Relevant to Health Maintenance Insurance [facility] PLAN [facility] Care Teams Carpenter Helper Hardwood Flooring Relationship Specialty Start Date End Date Pcp, Does Not Have A PCP - General 02/11/21
--- OUTSIDE RECORDS SUMMARY | 2024-11-04 09:02 | XMS_ITS | Data Portability ---
Author Organization [place] [facility] Roberto Banuelos [place] [place] Address [address] [place] [address] Care Team Providers Care Floorworker Distributor Name Role Phone LISA LAM Referring Provider JULIO CÉSAR KSIER Disassembler Product Assessment Encounter Date Assessment Date Assessment LastModified [...] physical examination, tests/diagnostic imaging, and treatment plan [email or web address] Not available 04/18/2024 11:22:04 05/02/2024 05/02/2024 The [...] physical examination, tests/diagnostic imaging, and treatment plan Not available 05/02/2024 10:25:18 05/30/2024 05/30/2024 He [...] fibula, 2 view 2023 [facility], [address], [place], [address], 11:58:10 Medication Orders None recorded. Patient TargetsNo targets recorded. Patient Instructions Encounter Date Encounter Id Patient Instructions Last Modified By Organization Details Last Modified Time 04/18/2024 [id number] X-rays of the left tib-fib were obtained which are negative for acute fracture. [email or web address] Not available 04/18/2024 11:28:34 05/02/2024 [id number] X-rays of the left tib-fib were obtained which are negative for acute fracture. [email or web address] Not available 05/02/2024 10:24:07 05/30/2024 [id number] X-rays of the left tib-fib were obtained which are negative for acute fracture. [email or web address] Not available 05/30/2024 08:21:35 07/11/2024 [id number] X-rays of the left tib-fib were obtained which are negative for acute fracture. [email or web address] Not available 07/11/2024 08:22:56 10/10/2024 [id number] X-rays of the left tib-fib were obtained which are negative for acute fracture. [email or web address] Not available 10/10/2024 08:18:24 Reason for Referral None Reported. Problems Name Problem SNOMED Code Status Onset Date Resolution Date Notes Provider Name and Address Organization Details Recorded Time Rupture of left Achilles tendon 179381071648483 00 Active 2023 DOMINIQUE LY PA-C [address], [place], [address], [facility] 4 11:22:18 Pain in left lower limb 382368906 Active 2023 DOMINIQUE LY PA-C [address], [place], [address], [facility] 4 10:24:08 Problem Notes None recorded. Procedures Surgical History Date Name Laterality Status Provider Name and Address Organization Details Recorded Time 04/19/20 ORTHOPAEDIC SURGERY (SURG) completed Margaret Johnson [facility] 04/22/2024 10:34:38 Imaging Results None recorded. Procedure Notes None recorded. Medical Equipment None Reported. Allergies Allergen ID Allergen Name Allergen Category Reaction Reaction Severity Criticality Documentation Date Start Date Code Code System Note Provider Name and Address Organization Details Recorded Time 08994 Product containin g penicilli n (product) medicatio n Not available Not available Not available 04/18/2024 40266 8001 SNOMED Javon bundy, [facility] 4 10:34:02 Medications Name Sig Start [...] Updated DateTime 04/18/2024 162.56 cm 30.9 kg/m2 38463.[address] [facility], [facility] 04/18/2024 10:33:39 Date Recorded Oxygen saturation Oxygen saturation in Arterial blood by Pulse oximetry Heart rate Systolic blood pressure Diastolic blood pressure Provider Name and Address Organization Details Last Updated DateTime 99 % 99 % 65 /min 126 mm[Hg] 84 mm[Hg] DOMINIQUE LY PA-C [address], [facility] [place], [address], [facility] 4 11:17:46 Date Recorded Body height Body mass index (BMI) Body weight Provider Name and Address Organization Details Last Updated DateTime 05/02/2024 162.56 cm 30.9 kg/m2 [address]88.[address] [facility] 05/02/2024 10:28:01 Date Recorded Body height Body mass index (BMI) Body weight Provider Name and Address Organization Details Last Updated DateTime 05/30/2024 162.56 cm 30.9 kg/m2 11277.[address] [facility] 05/30/2024 09:11:14 Date Recorded Body height Body mass index (BMI) Body weight Provider Name and Address Organization Details Last Updated DateTime 07/11/2024 162.56 cm 30.9 kg/m2 81486.63 g Abeba Ellis [facility] 07/11/2024 08:53:08 Date Recorded Body height Body mass index (BMI) Body weight Provider Name and Address Organization Details Last Updated DateTime 10/10/2024 162.56 cm 30.9 kg/m2 [address]957.[address] [facility] 10/10/2024 08:27:29 Social History None recorded. Functional Status None recorded. Mental Status None recorded. Family History Nothing Reported. Medical History No medical history recorded. Past Encounters Encounter ID Performer Location Encounter Start Date Encounter Closed Date Diagnosis/Indication Diagnosis SNOMED-CT Code Diagnosis ICD10 Code Diagnosis Note [id number] [facility], ite [address] [place] [address] 9 04/18/2024 10:16:30 04/18/2024 11:58:10 Pain in left lower limb 035919309 M79.605 Rupture of left Achilles tendon 0286257407 9475881 S86.012A [id number] [place] [address] 05/02/2024 10:21:50 05/02/2024 10:51:01 Rupture of left Achilles tendon 4271898881 2576215 S86.012A [id number] Ethel cMcray [place] [address] 05/30/2024 09:08:07 05/30/2024 10:02:39 Rupture of left Achilles tendon 6325179221 7545618 S86.012A [id number] [place] [address] 07/11/2024 08:48:39 07/11/2024 09:13:14 Rupture of left Achilles tendon 8908304512 6070034 S86.012A [id number] Ethel Mccray [place] [address] 10/10/2024 08:23:03 10/10/2024 08:42:30 Rupture of left Achilles tendon 8502901688 4810857 S86.012A Health Concerns Section Related Observation LastModified by Organization Detai ls LastModified Time None Recorded Concern Status LastModified by Organization Details LastModified Time None Recorded Advance Directives Directive None Recorded Payers Encounter Date Sequence Insurance Name Policy Number Policy Perez Covered Member ID Perez Member ID Guarantor Name 04/18/2024 1 [facility] [id number] Curtis Lea [id number] 1 Curtis Lea 05/02/2024 LIBERTAD Lea 05/30/2024 [facility]/[address] [place] [address] [id number] Curtis Lea [id number] 1 Curtis Lea 10/10/2024 [facility] Eli Lowry Curtis Lea Notes Date Note [...] good improvement. 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 He does not smoke. He drinks 3 alcoholic drinks per week. [address], [place], [address], [facility] 04/18/2024 11:28:36 05/02/2024 text/html Date of [...] good improvement. 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 He does not smoke. He drinks 3 alcoholic drinks per week. [address], [place], [address], [facility] 05/02/2024 10:52:46 05/30/2024 text/html Date of [...] good improvement. 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 He does not smoke. He drinks 3 alcoholic drinks per week. Ethel Mccray MD [address], [place], [address], [facility] 06/02/2024 18:56:20 07/11/2024 text/html Date of [...] good improvement. 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 He does not smoke. He drinks 3 alcoholic drinks per week. Ethel Mccray MD [address], [place], [address], [facility] 07/11/2024 09:56:04 10/10/2024 text/html Date of [...] have difficulty walking in the sand in [place]. From 07/11/24 ([facility]): for follow-up evaluation regarding his left [...] good improvement. 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 He does not smoke. He drinks 3 alcoholic drinks per week. Ethel Mccray MD [address], [place], [address], [facility] 10/10/2024 10:12:37
== END 2024-11-04 09:47 | disposition home or self-care (01) ==
LOC: HO.HGI 08:33
PROVIDERS: PCP Nurse Practitioner Family; Visit Provider Nurse Practitioner Family
DX: Z01.818 Encounter for other preprocedural examination (principal); Z12.11 Encounter for screening for malignant neoplasm of colon; Z83.719 Family history of colon polyps, unspecified
CPT/HCPCS: S0285

== ENCOUNTER → 2024-11-04 08:32 | Outpatient (BNVA) | payer OTHER, SELFPAY | PROVIDERS: PCP Nurse Practitioner Family; Visit Provider Nurse Practitioner Family ==

== ENCOUNTER 2024-12-04 08:24 | Outpatient (REF) | payer OTHER, SELFPAY ==
--- NOTE | ~2024-12-04 | US_ITS ---
CLINICAL HISTORY: R74.01 - Elevation of levels of liver transaminase levels US abdomen limited Comparison: None Findings: The visualized pancreas is normal. The aorta and inferior vena cava are normal caliber. The liver demonstrates increased echogenicity suggesting hepatic steatosis. There is no intrahepatic bile duct dilatation. The common duct is 3 mm in diameter. There is a 2 mm gallbladder polyp. The main portal vein is antegrade. The right kidney is 11.5 cm in length. No ascites. IMPRESSION: 1. 3 mm gallbladder polyp. 2. Increased hepatic echogenicity suggests steatosis. This document has been electronically signed by: Carlos Cota MD on 12/04/2024 11:55:32
--- OUTSIDE RECORDS SUMMARY | 2024-12-04 08:42 | XMS_ITS | Clinical Summary ---
Author Organization [address] Address [address] [place] [phone] Care Team Providers Care Printing Supervisor Name Role Phone Pcp, Does Not Have [...] Completed 02/26/2021 Meningococcal Vaccine Aged Out No iovn nancy eligible based on patient's age to [...] ?? For additional information please refer to http://education.Gradeable/faq/LDZ857 (This link is being provided for informational/ educational purposes only.) The performance of this assay has not been clinically validated in patients less than 2 years old. 02/26/2021 12:3 5 PM EDT 02/26/2021 12:36 PM EDT Narrative Resulting Agency Comment Performing Lab: ?Site ID: [id number] ?Name: [email or web address] ?Address: [address] [place] [address], [place] [address] ?Director: Brayan Will M.D. Filipe Duke MD LAB BLOOD ORDERABLES Final Res ult [facility] [address] [place], [place] [address] [place] [address] * Hepatitis panel, acute w/reflex (Q) (02/26/2021 12:35 PM EDT) Hep A IgM NON-REACT SKYLA NON-REACT SKYLA [facility] Comment: For additional information, please refer to http://DataCoup.Gradeable/faq/EBZ715 (This link is being provided for informational/ [...] a test for HCV RNA (test code 60582) is suggested. For additional information please refer to http://DataCoup.Gradeable/faq/DAC43b7 (This link is being provided for informational/ educational purposes only.) 02/26/2021 12:3 5 PM EDT 02/26/2021 12:36 PM EDT Narrative Resulting Agency Comment Performing Lab: ?Site ID: [id number] ?Name: [email or web address] ?Address: [address] [place] [address], [place] [address] ?Director: Brayan Will M.D. Filipe Duke MD LAB BLOOD ORDERABLES Final Res ult Performing Organization Address City/State/[facility] Co de Phone Number [facility] [address] [place] [address] from Last 3 Months or Most Recently Relevant to Health Maintenance Insurance [facility] PLAN [facility] Care Teams Printing Supervisor Relationship Specialty Start Date End Date Pcp, Does Not Have A PCP - General 02/11/21
== END 2024-12-04 08:25 | disposition home or self-care (01) ==
LOC: HO.US 08:24
PROVIDERS: PCP Nurse Practitioner Family; Visit Provider Nurse Practitioner Family
DX: R74.01 Elevation of levels of liver transaminase levels (principal)
CPT/HCPCS: 76705

== ENCOUNTER → 2024-12-04 08:27 | Outpatient (BNV) | payer OTHER, SELFPAY | PROVIDERS: PCP Nurse Practitioner Family; Visit Provider Radiology Diagnostic Radiology | DX: K82.8 Other specified diseases of gallbladder (principal) | CPT/HCPCS: 76705 ==

== ENCOUNTER 2024-12-24 08:53 | Day surgery (SDC) | payer OTHER, SELFPAY ==
--- OUTSIDE RECORDS SUMMARY | 2024-12-05 07:57 | XMS_ITS | Clinical Summary ---
Author Organization [address] Address [address] [place] [phone] Care Team Providers Care Sternman Name Role Phone Pcp, Does Not Have [...] ?? For additional information please refer to http://education.Thrill/faq/QZS734 (This link is being provided for informational/ educational purposes only.) The performance of this assay has not been clinically validated in patients less than 2 years old. 02/26/2021 12:3 5 PM EDT 02/26/2021 12:36 PM EDT Narrative Resulting Agency Comment Performing Lab: ?Site ID: [id number] ?Name: [facility] ?Address: [address] [place] [address], [place] [address] ?Director: Brayan Will M.D. Filipe Duke MD LAB BLOOD ORDERABLES Final Res ult [facility] [address] [place], [place] [address] [place] [address] * Hepatitis panel, acute w/reflex (Q) (02/26/2021 12:35 PM EDT) Hep A IgM NON-REACT SKYLA NON-REACT SKYLA [facility] Comment: For additional information, please refer to http://[employer].Thrill/faq/RGE425 (This link is being provided for informational/ [...] a test for HCV RNA (test code 44937) is suggested. For additional information please refer to http://[employer].Thrill/faq/TIF48v1 (This link is being provided for informational/ educational purposes only.) 02/26/2021 12:3 5 PM EDT 02/26/2021 12:36 PM EDT Narrative Resulting Agency Comment Performing Lab: ?Site ID: [id number] ?Name: [facility] ?Address: [address] [place] [address], [facility] [address] ?Director: Brayan Will M.D. Filipe Duke MD LAB BLOOD ORDERABLES Final Res ult Performing Organization Address City/State/[facility] Co de Phone Number [facility] [address] [place] [address] from Last 3 Months or Most Recently Relevant to Health Maintenance Insurance [facility] PLAN [facility] Care Teams Sternman Relationship Specialty Start Date End Date Pcp, Does Not Have A PCP - General 02/11/21
[2024-12-20 16:06] VITALS: BMI 28.8
--- NOTE | 2024-12-23 13:16 | HO.ANESPROP2 ---
Documented by User: Desiree Torres NP 12/23/24 13:17 HPI - Anesthesia Eval Consult details Narrative: 49yo M for Colonoscopy PMFSH Active Problems Active Problems: All Active Problems Hyperlipidemia (Acute) Hypercholesterolemia (Acute) Transaminitis (Acute) Mild anemia (Acute) Laboratory tests ordered as part of a complete physical exam (CPE) (Acute) Rupture of left Achilles tendon (Acute) Prostate cancer screening (Acute) Colon cancer screening (Acute) Normal physical examination, routine (Acute) Past Medical History Medical History IBS (irritable bowel syndrome) Sinusitis Family History Family History Father High cholesterol Paternal Grandmother Diabetes Mother Skin cancer Brother Skin cancer Surgical History Surgical History H/O Achilles tendon repair S/P right rotator cuff repair Social History Social History Housing: House Patient Tobacco Use Status: Never used Tobacco e-Cigarette/Vaping Use: Never Used Second Hand Smoke Exposure: No Substance Use Type Other:: Edibles-last dose Friday 12/22 Are you DNR?: No Advance Directives: No Advance Directives Information Provided: Yes service: No Current occupational status: employed 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 Current occupational exposures/hazards: No Cognitive needs: No Hearing needs: No Vision needs: Yes Meds Allergies Allergy/AdvReac Type Severity Reaction Status Date / Time Penicillins Allergy Mild Hives Verified 11/04/24 08:45 Home Medications ?Medication ?Instructions ?Recorded ?Confirmed ?Last Taken ?Type cetirizine 10 mg capsule (Zyrtec) 10 mg PO DAILY PRN 06/26/24 06/26/24 Unknown History Exam Height,Weight and Vital Signs: Height 5 ft 7 in Weight 83.461 kg Pertinent Lab Results Pertinent Lab Results: Laboratory Tests 07/01/24 10/10/24 08:33 09:38 WBC 5.7 Hgb 14.3 Hct 41.5 L Plt Count 220 Sodium 142 Potassium 4.0 Chloride 108 Carbon Dioxide 28 BUN 18 H Creatinine 1.13 Assessment and Plan Assessment Anesthesia Assessment: Chart Reviewed Documented by User: Markus Nieto MD 12/24/24 09:36 PMFSH Past Medical History Medical History IBS (irritable bowel syndrome) Sinusitis Family History Family History Father High cholesterol Paternal Grandmother Diabetes Mother Skin cancer Brother Skin cancer Family history of problems with anesthesia: No Surgical History Surgical History H/O Achilles tendon repair S/P right rotator cuff repair History of Problems with Anesthesia: No Social History Social History Housing: House Patient Tobacco Use Status: Never used Tobacco e-Cigarette/Vaping Use: Never Used Second Hand Smoke Exposure: No Substance Use Type Other:: Edibles-last dose Friday 12/22 Are you DNR?: No Advance Directives: No Advance Directives Information Provided: Yes service: No Current occupational status: employed 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 Current occupational exposures/hazards: No Cognitive needs: No Hearing needs: No Vision needs: Yes Meds Allergies Allergy/AdvReac Type Severity Reaction Status Date / Time Penicillins Allergy Mild Hives Verified 11/04/24 08:45 Home Medications ?Medication ?Instructions ?Recorded ?Confirmed ?Last Taken ?Type cetirizine 10 mg capsule (Zyrtec) 10 mg PO DAILY PRN 06/26/24 06/26/24 Unknown History Exam Airway Mallampati Class: II TM Dist: >3cm Neck ROM: Full Assessment and Plan Assessment Anesthesia Assessment: Anesthesia Plan Discussed Final Anesthetic Review Family History of Problems with Anesthesia: No History of Problems with Anesthesia: No NPO: Yes Final Preanesthetic Review: No Changes in Pt Med Stat, Meds/Allgs Chart Reviewed, Consent Obtained/Reviewed and Anes Risks/Benef Reviewed Patient Risk: Low Procedure Risk: Low Anesthetic Plan Anesthetic Plan: TIVA Disposition: Standard PACU
[2024-12-24 09:11] VITALS: BMI 28.3
[2024-12-24 09:20] VITALS: BP 137/79; PULSE 66; RESP 16; TEMP 36.9; O2SAT 99
--- NOTE | 2024-12-24 09:30 | MHC.SHP ---
Pre-Procedural Eval Section A - 24 Hr Update-Section A only Date of Service: 12/24/24 Section B - Complete if H&P > 30 days Chief Complaint: screening Relevant Family History (Specify if Yes): Yes Relevant Social History: None Present Medications: see Short Stay Collaborative assessment Medical History: Significant History (IBS (irritable bowel syndrome) Sinusitis) History of Previous Operations: Relevant previous surgery/procedure and date(s) ( H/O Achilles tendon repair S/P right rotator cuff repair) Allergies: Allergies Allergy/AdvReac Type Severity Reaction Status Date / Time Penicillins Allergy Mild Hives Verified 11/04/24 08:45 Review of Systems Sugical H&P ROS: Negative: Constitution, Cardiovascular, Respiratory, Neurological, Psychiatric, Hem-Onc, Allergic/Immunologic, Gastrointestinal, Genitourinary, Musculoskeletal, Integumentary, Endocrine and Eyes/Ears/Nose/Throat Exam Surgical H&P Exam: Normal: HEENT, Normal: Heart, Normal: Lungs, Normal: Extremities, Normal: Abdomen, Normal: Skin and Normal: Neurological Plan Diagnosis/Plan: Unchanged I have reviewed the history and physical and performed a pertinent physical examination on my patient. No changes have occurred unless specified. Time Spent With Patient Time: Total time managing care of this patient today ____ minutes.
[2024-12-24] MEDS: Lactated Ringers 1,000 ML 100 ML IVCONT (09:36)
--- NOTE | 2024-12-24 09:57 | HO.OPN-COLON ---
Colonoscopy Operative Note Operative Note Date of Service: 12/24/24 Narrative: Operative Information Procedure Description: Colonoscopy Indication: screening Anesthesia: MAC COLONOSCOPY Instrument: Olympus variable stiffness pediatric scope 190L Colonoscopy Monitoring: Vital signs and clinical assessment, continuous EKG monitoring, Pulse oximetry, Carbon Dioxide monitoring and blood pressure monitoring were done throughout the procedure. Colon withdrawal time was 8 minutes. Procedure: The patient was placed in the left lateral decubitis position and pre-procedure medications were administered. After a digital rectal examination of the ano-rectum, the video colonoscope was inserted into the rectum and advanced through the colon to the cecum/TI. The colonoscope was slowly withdrawn in a retrograde panoramic fashion and the colon mucosa was carefully examined including a retroflexed view of the rectum. Findings and interventions are described below. Procedure Difficulty: easy Findings: Terminal Ileum-normal Cecum: 10 mm flat polyp lifted with eleview and removed with cold snare Ascending Colon: normal Transverse Colon -normal Descending Colon:normal Sigmoid Colon: mild diverticulosis Rectum: Retroflexion with small internal hemorrhoids seen, grade I Anorectum - normal Intervention: cold snare and eleview for EMR Colon preparation: [place] Bowel Preparation Scale Right colon; 2 Transverse colon: 2 Left colon; 2 (0 = Unprepared colon segment with mucosa not seen due to solid stool that cannot be cleared. 1 = Portion of mucosa of the colon segment seen, but other areas of the colon segment not well seen due to staining, residual stool and/or opaque liquid. 2 = Minor amount of residual staining, small fragments of stool and/or opaque liquid, but mucosa of colon segment seen well. 3 = Entire mucosa of colon segment seen well with no residual staining, small fragments of stool or opaque liquid) Impression and Post Procedure Diagnosis: diverticulosis colon polyp x 1 internal hemorrhoids Plan: High fiber diet leaflet Avoid straining at stool, epsom salts and sitz bath, anusol supps or cream Repeat Colonoscopy in 5 years due to polyp or earlier if clinically indicated Above findings were reviewed with the patient and relevant handouts were provided if indicated.
[2024-12-24 10:00] VITALS: BP 102/63; PULSE 72; RESP 17; TEMP 36.6; O2SAT 98
[2024-12-24 10:15] VITALS: BP 114/71; PULSE 63; RESP 16; TEMP 36.6; O2SAT 99
--- NOTE | 2024-12-24 10:19 | HO.ANESPROP2 ---
[facility] Active Problems Active Problems: All Active Problems (Updated 10/21/24 @ 15:00 by Kailee Wilson CNP) Hyperlipidemia (Acute) Hypercholesterolemia (Acute) Transaminitis (Acute) Mild anemia (Acute) Laboratory tests ordered as part of a complete physical exam (CPE) (Acute) Rupture of left Achilles tendon (Acute) Prostate cancer screening (Acute) Colon cancer screening (Acute) Normal physical examination, routine (Acute) Past Medical History Medical History IBS (irritable bowel syndrome) Sinusitis Family History Family History Father High cholesterol Paternal Grandmother Diabetes Mother Skin cancer Brother Skin cancer Family history of problems with anesthesia: No Surgical History Surgical History H/O Achilles tendon repair S/P right rotator cuff repair History of Problems with Anesthesia: No Social History Social History Housing: House Patient Tobacco Use Status: Never used Tobacco e-Cigarette/Vaping Use: Never Used Second Hand Smoke Exposure: No service: No Current occupational status: employed 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 Current occupational exposures/hazards: No Cognitive needs: No Hearing needs: No Vision needs: Yes Meds Allergies Allergy/AdvReac Type Severity Reaction Status Date / Time Penicillins Allergy Mild Hives Verified 11/04/24 08:45 Active Medications: Current Medications Lactated Ringer's (Lr) 1,000 mls @ 100 mls/hr IVCONT .Q10H MARIE Last Admin: 12/24/24 09:36 Dose: 100 mls/hr Naloxone HCl (Naloxone Hcl 0.4 Mg/Ml Vial) 0.04 mg IVPUSH Q5M PRN PRN Reason: Excessive sedation or RR < 8 Home Medications ?Medication ?Instructions ?Recorded ?Confirmed ?Last Taken ?Type cetirizine 10 mg capsule (Zyrtec) 10 mg PO DAILY PRN 06/26/24 06/26/24 Unknown History Exam Height,Weight and Vital Signs: Height 5 ft 7 in Weight 82.024 kg Last Vital Signs Temp 98 F 12/24/24 10:15 Pulse 63 12/24/24 10:15 Resp 16 12/24/24 10:15 BP 114/71 12/24/24 10:15 Pulse Ox 99 12/24/24 10:15 O2 Del Method Room Air 12/24/24 10:15 Airway Mallampati Class: III TM Dist: >3cm Neck ROM: Full Assessment and Plan Final Anesthetic Review Family History of Problems with Anesthesia: No History of Problems with Anesthesia: No NPO: Yes ASA Class: III Final Preanesthetic Review: No Changes in Pt Med Stat, Meds/Allgs Chart Reviewed, Consent Obtained/Reviewed and Anes Risks/Benef Reviewed Patient Risk: Intermediate Procedure Risk: Low Anesthetic Plan Anesthetic Plan: TIVA Disposition: Standard PACU
== END 2024-12-24 10:59 | disposition home or self-care (01) ==
PROVIDERS: PCP Nurse Practitioner Family; Visit Provider Internal Medicine Gastroenterology
PROC: 0DJD8ZZ Inspection of Lower Intestinal Tract, Via Natural or Artificial Opening Endoscopic (ICD-10-PCS; CPT 45378; principal; 2024-12-24 11:40)
DX: Z12.11 Encounter for screening for malignant neoplasm of colon (principal); D12.0 Benign neoplasm of cecum; Z83.719 Family history of colon polyps, unspecified; K57.30 Diverticulosis of large intestine without perforation or abscess without bleeding; K64.0 First degree hemorrhoids; K58.9 Irritable bowel syndrome, unspecified; E78.00 Pure hypercholesterolemia, unspecified; R74.01 Elevation of levels of liver transaminase levels; J32.9 Chronic sinusitis, unspecified; Z79.899 Other long term (current) drug therapy; Z88.0 Allergy status to penicillin; Z98.890 Other specified postprocedural states
CPT/HCPCS: 45385; 45381; 88305; J2003; J2704

== ENCOUNTER → 2024-12-24 08:53 | Outpatient (BNV) | payer OTHER, SELFPAY | PROVIDERS: PCP Nurse Practitioner Family; Visit Provider Internal Medicine Gastroenterology | DX: Z12.11 Encounter for screening for malignant neoplasm of colon (principal); D12.0 Benign neoplasm of cecum; K57.30 Diverticulosis of large intestine without perforation or abscess without bleeding; K64.0 First degree hemorrhoids | CPT/HCPCS: 45381; 45385 ==

== ENCOUNTER 2025-01-31 08:14 | Outpatient (REF) | payer OTHER, SELFPAY ==
--- OUTSIDE RECORDS SUMMARY | 2025-01-31 08:20 | XMS_ITS | Clinical Summary ---
Author Organization [address] Address [address] [place] [id number] Care Team Providers Care Sound Person Name Role Phone Pcp, Does Not Have [...] confidentiality may be protected by state law. If your state requires such protection, then the state law prohibits you from making any further disclosure of the information without the specific written consent of the person to whom it pertains, or as otherwise permitted by law. A general authorization for the release of medical or other information is NOT sufficient for this purpose. For additional information please refer to http://Nusirt.Zencoder/faq/QKP067 (This link is being provided for informational/ educational purposes only.) The performance of this assay has not been clinically validated in patients less than 2 years old. 02/26/2021 12:3 5 PM EDT 02/26/2021 12:36 PM EDT Narrative Resulting Agency Comment Performing Lab: Site ID: [id number] Name: [facility] Address: [address] [place] [address], [place] [address] Director: Brayan Will M.D. us Filipe Duke MD LAB BLOOD ORDERABLES Final Res ult [facility] [address] [place] [address], [facility] * Hepatitis panel, acute w/reflex (Q) (02/26/2021 12:35 PM EDT) Hep A IgM NON-REACT SKYLA NON-REACT SKYLA [facility] Comment: For additional information, please refer to http://Nusirt.Zencoder/faq/TUK978 (This link is being provided for informational/ [...] a test for HCV RNA (test code 44767) is suggested. For additional information please refer to http://education.Zencoder/faq/BHC42k9 (This link is being provided for informational/ educational purposes only.) 02/26/2021 12:3 5 PM EDT 02/26/2021 12:36 PM EDT Narrative Resulting Agency Comment Performing Lab: Site ID: [id number] Name: [facility] Address: [address] [place] [address], [facility] [place] [address] Director: Brayan Will M.D. Filipe Duke MD LAB BLOOD ORDERABLES Final Res ult [facility] [address] [place] [address] from Last 3 Months or Most Recently Relevant to Health Maintenance Insurance [facility] Care Teams Sound Person Relationship Specialty Start Date End Date Pcp, Does Not Have A PCP - General 02/11/21
--- OUTSIDE RECORDS SUMMARY | 2025-01-31 08:20 | XMS_ITS | Data Portability ---
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 We discussed operative versus nonoperative management. He understands the outcomes are near identical. He is leaning toward surgical repair however he will talk with his yonas harding. He was consented for a left Achilles [...] physical examination, tests/diagnostic imaging, and treatment plan [email or web address] Not available 04/18/2024 11:22:04 05/02/2024 05/02/2024 The [...] physical examination, tests/diagnostic imaging, and treatment plan [email or web address] Not available 05/02/2024 10:25:18 05/30/2024 05/30/2024 He [...] 2 view 2023 024 [facility], [address], [place], [address], 11:58:10 Medication Orders None recorded. Patient TargetsNo targets recorded. Patient Instructions Encounter Date Encounter Id Patient Instructions Last Modified By Organization Details Last Modified Time 04/18/2024 [id number] X-rays of the left tib-fib were obtained which are negative for acute fracture. [email or web address] Not available 04/18/2024 11:28:34 05/02/2024 [id number] X-rays of the left tib-fib were obtained which are negative for acute fracture. [email or web address] Not available 05/02/2024 10:24:07 05/30/2024 [id number] X-rays of the left tib-fib were obtained which are negative for acute fracture. [email or web address] Not available 05/30/2024 08:21:35 07/11/2024 [id number] X-rays of the left tib-fib were obtained which are negative for acute fracture. Not available 07/11/2024 08:22:56 10/10/2024 [id number] X-rays of the left tib-fib were obtained which are negative for acute fracture. [email or web address] Not available 10/10/2024 08:18:24 Reason for Referral None Reported. Problems Name Problem SNOMED Code Status Onset Date Resolution Date Notes Provider Name and Address Organization Details Recorded Time Rupture of left Achilles tendon 503664137746970 00 Active 2023 DOMINIQUE LY PA-C [address], [place], [address], [facility], [facility] 4 11:22:18 Pain in left lower limb 908210697 Active 2023 DOMINIQUE LY PA-C [address], [place], [address], [facility] 4 10:24:08 Problem Notes None recorded. Procedures Surgical History Date Name Laterality Status Provider Name and Address Organization Details Recorded Time 04/19/20 ORTHOPAEDIC SURGERY (SURG) completed Margaret Johnson [facility] 04/22/2024 10:34:38 Imaging Results None recorded. Procedure Notes None recorded. Medical Equipment None Reported. Allergies Allergen ID Allergen Name Allergen Category Reaction Reaction Severity Criticality Documentation Date Start Date Code Code System Note Provider Name and Address Organization Details Recorded Time 32706 Product containin g penicilli n (product) medicatio n Not available Not available Not available 04/18/2024 82741 8001 SNOMED Javon bundy, [facility], P 4 10:34:02 Medications Name [...] Updated DateTime 07/11/2024 162.56 cm 30.9 kg/m2 56558.63 g [facility], P 07/11/2024 08:53:08 Date Recorded Body height Body mass index (BMI) Body weight Provider Name and Address Organization Details Last Updated DateTime 10/10/2024 162.56 cm 30.9 kg/m2 26439.63 g Javon [facility], P 10/10/2024 08:27:29 Date Recorded Oxygen saturation Oxygen saturation in Arterial blood by Pulse oximetry Heart rate Systolic And Diastolic Provider Name and Address Organization Details Last Updated DateTime 04/18/2024 99 % 99 % 65 /min 126/84 mm[Hg] DOMINIQUE LY PA-C [address], [place], [address] , [facility], P 11:17:46 Date Recorded Body height Body mass index (BMI) Body weight Provider Name and Address Organization Details Last Updated DateTime 04/18/2024 162.56 cm 30.9 kg/m2 68432.63 g Javon [facility], P 04/18/2024 10:33:39 Date Recorded Body height Body mass index (BMI) Body weight Provider Name and Address Organization Details Last Updated DateTime 05/02/2024 162.56 cm 30.9 kg/m2 56621.63 g [facility], P 05/02/2024 10:28:01 Date Recorded Body height Body mass index (BMI) Body weight Provider Name and Address Organization Details Last Updated DateTime 05/30/2024 162.56 cm 30.9 kg/m2 81625.63 g Javon [facility], P 05/30/2024 09:11:14 Social History None recorded. Functional Status None recorded. Mental Status None recorded. Family History Nothing Reported. Medical History No medical history recorded. Past Encounters Encounter ID Performer Location Encounter Start Date Encounter Closed Date Diagnosis/Indication Diagnosis SNOMED-CT Code Diagnosis ICD10 Code Diagnosis Note [id number] [facility] [address] [place] [address], [address] [place] [address] 9 04/18/2024 10:16:30 04/18/2024 11:58:10 Pain in left lower limb 564401442 M79.605 Rupture of left Achilles tendon 3560147659 2995160 S86.012A [id number] [place] [address] 05/02/2024 10:21:50 05/02/2024 10:51:01 Rupture of left Achilles tendon 1398907091 7112400 S86.012A [id number] Ethel Mccray MD [place] [address] 9 05/30/2024 09:08:07 05/30/2024 10:02:39 Rupture of left Achilles tendon 9935811024 9131381 S86.012A [id number] MD JESSENIA Yun [place] [address] 9 07/11/2024 08:48:39 07/11/2024 09:13:14 Rupture of left Achilles tendon 2382086427 [id number] S86.012A [id number] Ethel Mccray MD [place] [address] 9 10/10/2024 08:23:03 10/10/2024 08:42:30 Rupture of left Achilles tendon 8860873604 2420866 S86.012A Health Concerns Section Related Observation LastModified by Organization Detai ls LastModified Time None Recorded Concern Status LastModified by Organization Details LastModified Time None Recorded Advance Directives Directive None Recorded Payers Insurance Date Sequence Insurance Name Policy Number Policy Perez Covered Member ID Perez Member ID Guarantor Name 01/07/2025 1 HARJINDER [id number] Curtis Lea [id number] Curtis Lea 05/07/2024 LIBERTAD Lea Notes Date Note Type Note Provider [...] good improvement. 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 He does not smoke. He drinks 3 alcoholic drinks [address] week. [address], [place], [address], [place] [facility] 04/18/2024 11:28:36 05/02/2024 text/html Date of [...] He has been taking aspirin as directed. He denies chest pain, shortness of breath, calf pain, calf swelling or fevers. From 04/18/24 (TK): as a walk in patient for evaluation of his left lower extremity. He felt a pop in his calf while running playing football at a work event yesterday. He has been taking ibuprofen with good improvement. 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 He does not smoke. He drinks 3 alcoholic drinks per week. [address], [place], [address], [facility], [facility] 05/02/2024 10:52:46 05/30/2024 text/html Date of Injury: 04/17/24 Date of Surgery: 04/19/24 left achilles tendon repair Curtis Lea is a 49 year old male who presents today for follow-up evaluation now approximately 6 weeks postoperatively. He is overall doing well. His pain is a 1-2 out of 10. He denies chest pain, shortness of breath, calf [...] He has been taking aspirin as directed. He denies chest pain, shortness of breath, calf pain, calf swelling or fevers. From 04/18/24 (TK): as a walk in patient for evaluation of his left lower extremity. He felt a pop in his calf while running playing football at a work event yesterday. He has been taking ibuprofen with good improvement. 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 He does not smoke. He drinks 3 alcoholic drinks per week. Ethel Mccray MD [address], [place], [address], [place] [facility] 06/02/2024 18:56:20 07/11/2024 text/html Date of [...] pain is a 1-2 out of 10. He denies chest pain, shortness of breath, calf [...] He has been taking aspirin as directed. He denies chest pain, shortness of breath, calf pain, calf swelling or fevers. From 04/18/24 (TK): as a walk in patient for evaluation of his left lower extremity. He felt a pop in his calf while running playing football at a work event yesterday. He has been taking ibuprofen with good improvement. 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 He does not smoke. He drinks 3 alcoholic drinks per week. Ethel Mccray MD [address], [place], [address], [place] [facility] 07/11/2024 09:56:04 10/10/2024 text/html Date of [...] have difficulty walking in the sand in [place]. From 07/11/24 ([facility]): for follow-up evaluation regarding his left [...] pain is a 1-2 out of 10. He denies chest pain, shortness of breath, calf [...] He has been taking aspirin as directed. He denies chest pain, shortness of breath, calf pain, calf swelling or fevers. From 04/18/24 (TK): as a walk in patient for evaluation of his left lower extremity. He felt a pop in his calf while running playing football at a work event yesterday. He has been taking ibuprofen with good improvement. 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 He does not smoke. He drinks 3 alcoholic drinks per week. Ethel Mccray MD [address], [place], [address], [place] [facility] 10/10/2024 10:12:37
--- OUTSIDE RECORDS SUMMARY | 2025-01-31 08:20 | XMS_ITS ---
Author Name [facility] Organization Unknown History of Medication Use Medication Directions Dispensed Refills Start Date End Date Stat us Tylenol Extra Strength 500 mg tablet Take 2 tablets 3 times a day by oral route. 04/18/2024 active azithromycin 250 mg tablet TAKE 2 TABLETS BY MOUTH TODAY, THEN TAKE 1 TABLET DAILY FOR 4 DAYS DIRECTED active Carmen Aspirin 325 mg tablet TAKE 1 TABLET BY MOUTH EVERY DAY FOR 30 DAYS active ketorolac 10 mg tablet TAKE 1 TABLET BY MOUTH EVERY 6 HOURS NEEDED FOR PAIN active triamcinolone acetonide 0.1 % topical ointment APPLY TO AFFECTED AREA UP TO 3 TIMES A DAY NEEDED active Allergies Allergen Reaction Severity Comment Documented Date Source Statu s PENICILLINS ENS_AONECT Problems Problem Status Onset Date Problem Type Date of Resoluti on Source Rupture of left Achilles tendon active 2024-04-18 ProblemAct ENS_AONECT Pain in left lower limb active 2024-05-02 ProblemAct ENS_AONECT Encounters Encounter Type Encounter Reason Primary Diagnosis Location Date Ambulatory [facility] 05/01/2024 Ambulatory [facility] 05/01/2024 Ambulatory [facility] 04/23/2024 Ambulatory [facility] 04/23/2024 Ambulatory ROUTINE Strain of left Achilles tendon, initial encounter [facility] 04/19/2024 Ambulatory [facility] 04/19/2024 Ambulatory [facility] 04/18/2024 Ambulatory [facility] 04/18/2024 Ambulatory [facility] 04/18/2024 Ambulatory [facility] 04/18/2024 Ambulatory [facility] 04/18/2024 Ambulatory [facility] 04/18/2024 Ambulatory [facility] 04/18/2024 Ambulatory [facility] 04/18/2024 Ambulatory [facility] 04/18/2024 Care Team Organization Name Specialty Phone Email Start Date End Alhaji he [facility] [place] 2023 [facility] 2023
[2025-01-31 11:28] LABS: Cholesterol 188 mg/dL (<200); HDL Cholesterol 40 mg/dL (>40); Triglycerides 147 mg/dL (<150)
== END 2025-01-31 08:15 | disposition home or self-care (01) ==
LOC: HO.WFDLDS 08:14
PROVIDERS: Visit Provider Nurse Practitioner Family
DX: E78.5 Hyperlipidemia, unspecified (principal)
CPT/HCPCS: 36415; 80061

== ENCOUNTER 2025-02-04 14:16 | Outpatient (AMB) | payer OTHER, SELFPAY ==
--- NOTE | 2025-02-04 14:02 | MHC.PC.OV ---
Intake Visit Reasons: Telehealth 2 months HLD / Rebook from 12/31 Intake Note: patient here for 2 month Telehealth follow up on HLD Transportation Dispatch Manager Required: No Allergies Penicillins Allergy (Mild, Verified 02/04/25 14:02) Hives Tobacco use date assessed: 02/04/25 Dental Screening Dental Screen Date: 02/04/25 Did you have a dental visit in the last 12 months?: Yes Did you have a dental problem in the last 6 months where you did not have access to dental care?: No Was dental information given to patient?: Patient has dentist HPI HPI Comments History of Present Illness Details 50-year-old male presents for telehealth visit for review of recent lab results. Admits to making healthy lifestyle changes. No acute symptoms at this time. 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 Arsen Perez, Malka Grider, Manpreet Johnson and colleagues, with an educational zehra from [employer]. Review of Systems Const Details: Denies chills, Denies fatigue, Denies fever(s), Denies headache(s) and Denies weakness Cardiac Denies chest pain, Denies claudication, Denies leg edema, Denies lightheadedness, Denies palpitations, Denies dyspnea, Denies dyspnea on exertion, Denies orthopnea and Denies other (Loss of consciousness) Resp Denies cough, Denies excessive phlegm production, Denies dyspnea, Denies dyspnea on exertion, Denies snoring and Denies wheezing Physical exam (Primary Care) Tobacco/Smoking Status: Tobacco use Status Tobacco use date assessed 02/04/25 02/04/25 14:04 Patient Tobacco Use Status Never used Tobacco 02/04/25 14:04 e-Cigarette/Vaping Use Never Used 02/04/25 14:04 Thrive Assessment: Date of Thrive Assessment Date Thrive assessed 06/26/24 02/04/25 14:04 Const Other: Patient is alert and oriented x3 Telehealth Telehealth Telehealth Platform: Telephone Location of provider rendering services: practice address Location of patient: address on file Patient Identification confirmed using: Name, : Yes Telehealth method: voice only Patient verbally consented to treatment: Yes Patient verbally consented to billing insurance company: Yes Patient informed of any privacy concerns related to visit: Yes Coding Level of Care Code Tele Est Pt Level 3 (65093) Diagnoses Hyperlipidemia E78.5 Hepatic steatosis K76.0 Time Spent (min) 15 Assessment & Plan Assessment & Plan (1) Hyperlipidemia: Code(s): E78.5 - Hyperlipidemia, unspecified Category: Medical Plan: Recent LDL level is slightly elevated, 119; triglycerides and total cholesterol levels are normal, 147 and 188 respectively; HDL level is slightly low, 40. Advised to limit foods high in saturated fat and avoid foods high in trans fat. Routine exercise encouraged. Fast for 10-12 hours, may drink water, and perform lipid panel blood work a few days before next visit. Follow-up for telehealth visit in 3 months. Return sooner with symptoms or concerns. Verbalized understanding and agreed with the plan. (2) Hepatic steatosis: Code(s): K76.0 - Fatty (change of) liver, not elsewhere classified Category: Medical Plan: Recent liver ultrasound revealed hepatic steatosis and 3 mm gallbladder polyp. Healthy diet/which management encouraged. Will monitor liver enzyme annually or as needed. Verbalized understanding and agreed with the plan. Orders: Orders Lipid Panel 3 Months E78.5 - Hyperlipidemia, unspecified
--- OUTSIDE RECORDS SUMMARY | 2025-02-04 14:57 | XMS_ITS | Data Portability ---
Author Organization [place] [facility] Roberto Banuelos AONE [place] Address [address] [place] [address] Care Team Providers Care School Cafeteria Head Cook Name Role Phone LISA LAM Referring Provider JULIO CÉSAR KISER Secretary Of [employer] Assessment Encounter Date Assessment Date Assessment LastModified [...] tests/diagnostic imaging, and treatment plan Not available 04/18/2024 11:22:04 05/02/2024 05/02/2024 The [...] 2 view 2023 024 aamoro [facility], [address], [place], [address], 11:58:10 Medication Orders None recorded. Patient TargetsNo targets recorded. Patient Instructions Encounter Date Encounter Id Patient Instructions Last Modified By Organization Details Last Modified Time 04/18/2024 [id number] X-rays of the left tib-fib were obtained which are negative for acute fracture. [email or web address] Not available 04/18/2024 11:28:34 05/02/2024 [id number] X-rays of the left tib-fib were obtained which are negative for acute fracture. [email or web address] Not available 05/02/2024 10:24:07 05/30/2024 [id number] X-rays of the left tib-fib were obtained which are negative for acute fracture. Not available 05/30/2024 08:21:35 07/11/2024 [id number] X-rays of the left tib-fib were obtained which are negative for acute fracture. [email or web address] Not available 07/11/2024 08:22:56 10/10/2024 [id number] X-rays of the left tib-fib were obtained which are negative for acute fracture. Not available 10/10/2024 08:18:24 Reason for Referral None Reported. Problems Name Problem SNOMED Code Status Onset Date Resolution Date Notes Provider Name and Address Organization Details Recorded Time Rupture of left Achilles tendon 874868804788625 00 Active 2023 DOMINIQUE LY PA-C [address], [place], [address], [facility] [place] 4 11:22:18 Pain in left lower limb 110069586 Active 2023 DOMINIQUE LY PA-C [address], [facility] [place], [address], [facility] [place], [facility] 4 10:24:08 Problem Notes None recorded. Procedures Surgical History Date Name Laterality Status Provider Name and Address Organization Details Recorded Time 04/19/20 ORTHOPAEDIC SURGERY (SURG) completed Margaret Johnson [facility] [place], [facility] 04/22/2024 10:34:38 Imaging Results None recorded. Procedure Notes None recorded. Medical Equipment None Reported. Allergies Allergen ID Allergen Name Allergen Category Reaction Reaction Severity Criticality Documentation Date Start Date Code Code System Note Provider Name and Address Organization Details Recorded Time 79395 Product containin g penicilli n (product) medicatio n Not available Not available Not available 04/18/2024 48133 8001 SNOMED Javon bundy, [facility], P 4 10:34:02 Medications Name Sig Start [...] Updated DateTime 07/11/2024 162.56 cm 30.9 kg/m2 05958.63 g [facility], P 07/11/2024 08:53:08 Date Recorded Body height Body mass index (BMI) Body weight Provider Name and Address Organization Details Last Updated DateTime 10/10/2024 162.56 cm 30.9 kg/m2 97652.63 g Javon [facility], P 10/10/2024 08:27:29 Date Recorded Oxygen saturation Oxygen saturation in Arterial blood by Pulse oximetry Heart rate Systolic And Diastolic Provider Name and Address Organization Details Last Updated DateTime 04/18/2024 99 % 99 % 65 /min 126/84 mm[Hg] DOMINIQUE LY PA-C [address], [place], [address] , [facility], P 11:17:46 Date Recorded Body height Body mass index (BMI) Body weight Provider Name and Address Organization Details Last Updated DateTime 04/18/2024 162.56 cm 30.9 kg/m2 97422.63 g Javon [facility], P 04/18/2024 10:33:39 Date Recorded Body height Body mass index (BMI) Body weight Provider Name and Address Organization Details Last Updated DateTime 05/02/2024 162.56 cm 30.9 kg/m2 67641.63 g [facility], P 05/02/2024 10:28:01 Date Recorded Body height Body mass index (BMI) Body weight Provider Name and Address Organization Details Last Updated DateTime 05/30/2024 162.56 cm 30.9 kg/m2 47332.63 g Javon [facility], P 05/30/2024 09:11:14 Social History None recorded. Functional Status None recorded. Mental Status None recorded. Family History Nothing Reported. Medical History No medical history recorded. Past Encounters Encounter ID Performer Location Encounter Start Date Encounter Closed Date Diagnosis/Indication Diagnosis SNOMED-CT Code Diagnosis ICD10 Code Diagnosis Note [id number] [address] [place] [address], ite [address] [place] [address] 9 04/18/2024 10:16:30 04/18/2024 11:58:10 Pain in left lower limb 062045341 M79.605 Rupture of left Achilles tendon 4775398233 4309409 S86.012A [id number] [place] [address] 05/02/2024 10:21:50 05/02/2024 10:51:01 Rupture of left Achilles tendon 9391461794 [id number] S86.012A [id number] Ethel Mccray MD [place] [address] 9 05/30/2024 09:08:07 05/30/2024 10:02:39 Rupture of left Achilles tendon 1352857773 1130496 S86.012A [id number] MD JESSENIA Yun [place] [address] 9 07/11/2024 08:48:39 07/11/2024 09:13:14 Rupture of left Achilles tendon 5482732739 [id number] S86.012A [id number] Ethel Mccray MD [place] [address] 9 10/10/2024 08:23:03 10/10/2024 08:42:30 Rupture of left Achilles tendon 3063252033 1682525 S86.012A Health Concerns Section Related Observation LastModified by Organization Detai ls LastModified Time None Recorded Concern Status LastModified by Organization Details LastModified Time None Recorded Advance Directives Directive None Recorded Payers Insurance Date Sequence Insurance Name Policy Number Policy Perez Covered Member ID Perez Member ID Guarantor Name 01/07/2025 1 HARJINDER [id number] Curtis Lea [id number] Curtis Lea 05/07/2024 LIBERTAD Lea
--- OUTSIDE RECORDS SUMMARY | 2025-02-04 14:57 | XMS_ITS | Clinical Summary ---
Author Organization [address] Address [address] [place] [address] Care Team Providers Care Film Library Clerk Name Role Phone Pcp, Does Not Have [...] purpose. For additional information please refer to http://inDinero.[facility]/faq/JTA830 (This link is being provided for informational/ educational purposes only.) The performance of this assay has not been clinically validated in patients less than 2 years old. 02/26/2021 12:3 5 PM EDT 02/26/2021 12:36 PM EDT Narrative Resulting Agency Comment Performing Lab: Site ID: [id number] Name: [facility] Address: [address] [place] [address], [place] [address] Director: Brayan Will M.D. us Filipe Duke MD LAB BLOOD ORDERABLES Final Res ult [facility] [address] [place] [address], [facility] * Hepatitis panel, acute w/reflex (Q) (02/26/2021 12:35 PM EDT) Hep A IgM NON-REACT SKYLA NON-REACT SKYLA [facility] Comment: For additional information, please refer to http://inDinero.[facility]/faq/PVK259 (This link is being provided for informational/ [...] a test for HCV RNA (test code 04879) is suggested. For additional information please refer to http://education.[facility]/faq/TAL93c3 (This link is being provided for informational/ educational purposes only.) 02/26/2021 12:3 5 PM EDT 02/26/2021 12:36 PM EDT Narrative Resulting Agency Comment Performing Lab: Site ID: [id number] Name: [facility] Address: [address] [place] [address], [facility] [place] [address] Director: Brayan Will M.D. Filipe Duke MD LAB BLOOD ORDERABLES Final Res ult [facility] [address] [place] [address] from Last 3 Months or Most Recently Relevant to Health Maintenance Insurance [facility] Care Teams Film Library Clerk Relationship Specialty Start Date End Date Pcp, Does Not Have A PCP - General 02/11/21
== END 2025-02-04 15:09 | disposition home or self-care (01) ==
LOC: HO.HMCFM 14:16
PROVIDERS: PCP Nurse Practitioner Family; Visit Provider Nurse Practitioner Family
DX: E78.5 Hyperlipidemia, unspecified (principal); K76.0 Fatty (change of) liver, not elsewhere classified

== ENCOUNTER 2025-05-09 07:39 | Outpatient (REF) | payer OTHER, SELFPAY ==
--- OUTSIDE RECORDS SUMMARY | 2025-05-09 07:41 | XMS_ITS | Data Portability ---
Author Organization [place] [facility] Roberto Banuelos AONE [place] Address [address] [place] [address] Care Team Providers Care Fox Farmer Name Role Phone LAM LISA Referring Provider STALIN MURPHY Silo Filler [phone] Assessment Encounter Date Assessment Date Assessment LastModified [...] physical examination, tests/diagnostic imaging, and treatment plan [email or web address] Not available 04/18/2024 11:22:04 05/02/2024 05/02/2024 The [...] physical examination, tests/diagnostic imaging, and treatment plan [email or web address] Not available 05/02/2024 10:25:18 05/30/2024 05/30/2024 He [...] fibula, 2 view 2023 aamoro [facility], [address], [place], [address], 11:58:10 Medication Orders None recorded. Patient TargetsNo targets recorded. Patient Instructions Encounter Date Encounter Id Patient Instructions Last Modified By Organization Details Last Modified Time 04/18/2024 [id number] X-rays of the left tib-fib were obtained which are negative for acute fracture. [email or web address] Not available 04/18/2024 11:28:34 05/02/2024 [id number] X-rays of the left tib-fib were obtained which are negative for acute fracture. [email or web address] Not available 05/02/2024 10:24:07 05/30/2024 [id number] X-rays of the left tib-fib were obtained which are negative for acute fracture. [email or web address] Not available 05/30/2024 08:21:35 07/11/2024 [id number] X-rays of the left tib-fib were obtained which are negative for acute fracture. [email or web address] Not available 07/11/2024 08:22:56 10/10/2024 [id number] X-rays of the left tib-fib were obtained which are negative for acute fracture. [email or web address] Not available 10/10/2024 08:18:24 Reason for Referral None Reported. Problems Name Problem SNOMED Code Status Onset Date Resolution Date Notes Provider Name and Address Organization Details Recorded Time Rupture of left Achilles tendon 639014450147558 00 Active 2023 DOMINIQUE LY PA-C [address], [place], [address], [place] [facility], [facility] 4 11:22:18 Pain in left lower limb 361073962 Active 2023 DOMINIQUE LY PA-C [address], [place], [address], [facility] [place], [facility] 4 10:24:08 Problem Notes None recorded. Procedures Surgical History Date Name Laterality Status Provider Name and Address Organization Details Recorded Time 04/19/20 ORTHOPAEDIC SURGERY (SURG) completed Margaret Johnson [facility] [place], P 04/22/2024 10:34:38 Imaging Results None recorded. Procedure Notes None recorded. Medical Equipment None Reported. Allergies Allergen ID Allergen Name Allergen Category Reaction Reaction Severity Criticality Documentation Date Start Date Code Code System Note Provider Name and Address Organization Details Recorded Time 70438 Product containin g penicilli n (product) medicatio n Not available Not available Not available 04/18/2024 49001 8001 SNOMED Javon bundy, [facility] [place], P 4 10:34:02 Medications Name Sig Start [...] Updated DateTime 07/11/2024 162.56 cm 30.9 kg/m2 58102.63 g [facility], P 07/11/2024 08:53:08 Date Recorded Body height Body mass index (BMI) Body weight Provider Name and Address Organization Details Last Updated DateTime 10/10/2024 162.56 cm 30.9 kg/m2 04222.63 g aJvon MLW [facility], P 10/10/2024 08:27:29 Date Recorded Oxygen saturation Oxygen saturation in Arterial blood by Pulse oximetry Heart rate Systolic And Diastolic Provider Name and Address Organization Details Last Updated DateTime 04/18/2024 99 % 99 % 65 /min 126/84 mm[Hg] DOMINIQUE LY PA-C [address], [place], [address] , [facility] [place], P 11:17:46 Date Recorded Body height Body mass index (BMI) Body weight Provider Name and Address Organization Details Last Updated DateTime 04/18/2024 162.56 cm 30.9 kg/m2 72746.63 g Javon MLW [facility], P 04/18/2024 10:33:39 Date Recorded Body height Body mass index (BMI) Body weight Provider Name and Address Organization Details Last Updated DateTime 05/02/2024 162.56 cm 30.9 kg/m2 02617.63 g [facility], P 05/02/2024 10:28:01 Date Recorded Body height Body mass index (BMI) Body weight Provider Name and Address Organization Details Last Updated DateTime 05/30/2024 162.56 cm 30.9 kg/m2 28660.63 g Javon MLW [facility], P 05/30/2024 09:11:14 Social History None recorded. Functional Status None recorded. Mental Status None recorded. Family History Nothing Reported. Medical History No medical history recorded. Past Encounters Encounter ID Performer Location Encounter Start Date Encounter Closed Date Diagnosis/Indication Diagnosis SNOMED-CT Code Diagnosis ICD10 Code Diagnosis IMO Codes Diagnosis Note [id number] YUE PEARSON [facility] [address] [place] [address],[place] ite [address] [place], [place] [address] 04/18/2024 10:16:30 04/18/2024 11:58:10 Pain in left lower limb 584056097 M79.605 562417 Rupture of left Achilles tendon 2532904411 9986750 S86.012A [id number] [place] [address] 05/02/2024 10:21:50 05/02/2024 10:51:01 Rupture of left Achilles tendon 7303507664 3330221 S86.012A [id number] MD [place] [address] 05/30/2024 09:08:07 05/30/2024 10:02:39 Rupture of left Achilles tendon 1321006779 5772367 S86.012A [id number] MD [place] [address] 9 07/11/2024 08:48:39 07/11/2024 09:13:14 Rupture of left Achilles tendon 3771423007 [id number] S86.012A [id number] Ethel Mccray MD [place] [address] 10/10/2024 08:23:03 10/10/2024 08:42:30 Rupture of left Achilles tendon 0552513993 6270404 S86.012A [id number] Health Concerns Section Related Observation LastModified by Organization Detai ls LastModified Time None Recorded Concern Status LastModified by Organization Details LastModified Time None Recorded Advance Directives Directive None Recorded Payers Insurance Date Sequence Insurance Name Policy Number Policy Perez Covered Member ID Perez Member ID Guarantor Name 02/05/2025 [facility] [employer] Curtis Lea 01/07/2025 [id number] Curtis Lea [id number] Curtis Lea 02/13/2025 [facility] Curtis Lea Notes Date Note Type Note [...] improvement. 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 He does not smoke. He drinks 3 alcoholic drinks per week. DOMINIQUE LY PA-C [address], [place], [address], [facility], [facility] 04/18/2024 11:28:36 05/02/2024 text/html Date of [...] improvement. 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 He does not smoke. He drinks 3 alcoholic drinks per week. DOMINIQUE LY PA-C [address], [place], [address], [facility], [facility] 05/02/2024 10:52:46 05/30/2024 text/html Date of [...] improvement. 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 He does not smoke. He drinks 3 alcoholic drinks per week. Ethel Mccray MD [address], [place], [address], [facility], [facility] 06/02/2024 18:56:20 07/11/2024 text/html Date of [...] improvement. 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 He does not smoke. He drinks 3 alcoholic drinks per week. Ethel Mccray MD [address], [place], [address], [facility], [facility] 07/11/2024 09:56:04 10/10/2024 text/html Date of [...] have difficulty walking in the sand in [place]. From 07/11/24 (AJF): for follow-up evaluation regarding his left Achilles [...] improvement. 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 He does not smoke. He drinks 3 alcoholic drinks per week. Ethel Mccray MD [address], [place], [address], [place] [facility], [facility] 10/10/2024 10:12:37
--- OUTSIDE RECORDS SUMMARY | 2025-05-09 07:41 | XMS_ITS | Clinical Summary ---
Author Organization [address] Address [address] [place] [id number] Care Team Providers Care Behavioral Technician Name Role Phone Pcp, Does Not Have [...] 2 Dose Standard Series) 01/26/2024 Influenza vaccine 02/07/2025 Covid-19 vaccine series ( - season) 2025 RSV Immunization (1 - 1-dose 75+ series) 2049 HIV screening Completed 02/26/2021 Hepatitis C screening Completed 02/26/2021 Meningococcal B Vaccine Aged Out No l onger eligible based on patient's age to complete this topic Meningococcal Vaccine Aged Out No ivon nancy [...] purpose. For additional information please refer to http://education.Adapx/faq/VYQ883 (This link is being provided for informational/ educational purposes only.) The performance of this assay has not been clinically validated in patients less than 2 years old. 02/26/2021 12:3 5 PM EDT 02/26/2021 12:36 PM EDT Narrative Resulting Agency Comment Performing Lab: Site ID: [id number] Name: [facility] Address: [address] [place] [address], [place] [address] Director: Brayan Will M.D. Filipe Duke MD LAB BLOOD ORDERABLES Final Res ult [facility] [address] [place] [id number] * Hepatitis panel, acute w/reflex (Q) (02/26/2021 12:35 PM EDT) Hep A IgM NON-REACT SKYLA NON-REACT SKYLA [facility] Comment: For additional information, please refer to http://education.Adapx/faq/YPZ510 (This link is being provided for informational/ [...] a test for HCV RNA (test code 26130) is suggested. For additional information please refer to http://SeeControl.Adapx/faq/UXR45n3 (This link is being provided for informational/ educational purposes only.) 02/26/2021 12:3 5 PM EDT 02/26/2021 12:36 PM EDT Narrative Resulting Agency Comment Performing Lab: Site ID: [id number] Name: [facility] Address: [address] [place] [address], [place] [address] Director: Brayan Will M.D. Filipe Duke MD LAB BLOOD ORDERABLES Final Res ult [facility] [address] [place] [address] from Last 3 Months or Most Recently Relevant to Health Maintenance Insurance [facility] PLAN [facility] Care Teams Behavioral Technician Relationship Specialty Start Date End Date Pcp, Does Not Have A PCP - General 02/11/21
[2025-05-09 11:57] LABS: Cholesterol 176 mg/dL (<200); HDL Cholesterol 44 mg/dL (>40); Triglycerides 144 mg/dL (<150)
== END 2025-05-09 07:40 | disposition home or self-care (01) ==
LOC: HO.WFDLDS 07:39
PROVIDERS: Visit Provider Nurse Practitioner Family
DX: E78.5 Hyperlipidemia, unspecified (principal)
CPT/HCPCS: 36415; 80061

== ENCOUNTER 2025-05-12 14:13 | Outpatient (AMB) | payer OTHER, SELFPAY ==
--- NOTE | 2025-05-12 14:11 | A.OFFPC_ITS ---
Intake Visit Reasons: Telehealth 3 mos HLD Intake Note: patient here for 3month follow up om HLD Technical Aide Required: No Allergies Penicillins Allergy (Mild, Verified 05/12/25 14:11) Hives Tobacco use date assessed: 05/12/25 Dental Screening Dental Screen Date: 05/12/25 Did you have a dental visit in the last 12 months?: Yes Did you have a dental problem in the last 6 months where you did not have access to dental care?: No Was dental information given to patient?: Patient has dentist HPI HPI Comments History of Present Illness Details 50-year-old male presents for hyperchole sterolemia follow-up. He notes that he has been making healthy dietary choices and exercising routinely. No acute symptoms at this time. 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 Current occupational exposures/hazards: No Cognitive needs: No Hearing needs: No Vision needs: Yes Questionnaire Thrive Questionnaire Date Thrive assessed: 06/26/24 I am a: Patient What is your living situation today?: I have a steady place to live Within the past 12 months, did the food you bought not last and you didn't have the money to get more?: Never true Within the past 12 months, did you worry whether your food would run out before you got money to buy more?: Never true Do you have trouble paying for medicines?: No Do you have trouble getting transportation to medical appointments?: No Do you have trouble paying your heating and electricity bill?: No Do you have trouble taking care of your child, family member or friend?: No Do you have trouble with day-to-day activities such as bathing, preparing meals, shopping, managing finances, etc.?: No Are you currently unemployed and looking for a job?: No Are you interested in more education?: No Please select the resources that you would like help with: None Currently or been in a relationship where the following occur: No concerns reported THRIVE Score: 0 JENIFFER-7 AMB Questionnaire JENIFFER-7 Date JENIFFER - 7 assessed: 06/26/24 Source: Developed by Drs. Arsen Perez, Malka Grider, Manpreet Johnson and colleagues, with an educational zehra from [employer]. Review of Systems Const Details: Denies chills, Denies fatigue, Denies fever(s), Denies headache(s) and Denies weakness Cardiac Denies chest pain, Denies claudication, Denies leg edema, Denies lightheadedness, Denies palpitations, Denies dyspnea, Denies dyspnea on exertion, Denies orthopnea and Denies other (Loss of consciousness) Resp Denies cough, Denies excessive phlegm production, Denies dyspnea, Denies dyspnea on exertion, Denies snoring and Denies wheezing Physical exam (Primary Care) Tobacco/Smoking Status: Tobacco use Status Tobacco use date assessed 05/12/25 05/12/25 14:11 Patient Tobacco Use Status Never used Tobacco 05/12/25 14:11 e-Cigarette/Vaping Use Never Used 05/12/25 14:11 Thrive Assessment: Date of Thrive Assessment Date Thrive assessed 06/26/24 05/12/25 14:11 Currently or been in a relationship where the following occur: No concerns reported Const Other: Patient is alert and oriented x3 Telehealth Telehealth Telehealth Platform: Telephone Location of provider rendering services: practice address Location of patient: address on file Patient Identification confirmed using: Name, : Yes Telehealth method: voice only Patient verbally consented to treatment: Yes Patient verbally consented to billing insurance company: Yes Patient informed of any privacy concerns related to visit: Yes Coding Level of Care Code Tele Est Pt Level 3 (83878) Diagnoses Hypercholesterolemia E78.00 Laboratory tests ordered as part of a complete physical exam (CPE) Z00.00 Time Spent (min) 10 Assessment & Plan Assessment & Plan (1) Hypercholesterolemia: Code(s): E78.00 - Pure hypercholesterolemia, unspecified Category: Medical Plan: Recent LDL level is slightly elevated, 104, triglycerides, total cholesterol, and HDL levels are normal. Advised to limit foods high in saturated fat and avoid foods high in trans fat. Routine exercise encouraged. Will monitor lipid panel level annually or as needed. Verbalized understanding and agreed with the plan. (2) Laboratory tests ordered as part of a complete physical exam (CPE): Code(s): Z00.00 - Encounter for general adult medical examination without abnormal findings Category: Medical Plan: Fasting labs ordered as part of a complete physical exam. Advised to fast for at least 10 hours before getting labs drawn. May drink water Verbalized understanding and agreed with treatment plan. Orders: Orders Microalbumin, Random (w Creat) 1 Month Z00.00 - Encounter for general adult medical examination without abnormal findings UA CC w/rflx Micro + Cult 1 Month Z00.00 - Encounter for general adult medical examination without abnormal findings Complete Blood Count Auto Diff 1 Month E78.00 - Pure hypercholesterolemia, unspecified Comprehensive Reynolds. Panel Fast 1 Month Z00.00 - Encounter for general adult medical examination without abnormal findings TSH reflex Free T4 1 Month Z00.00 - Encounter for general adult medical examination without abnormal findings Vitamin D 25-OH Total 1 Month Z00.00 - Encounter for general adult medical examination without abnormal findings
== END 2025-05-12 15:02 | disposition home or self-care (01) ==
LOC: HO.HMCFM 14:13
PROVIDERS: PCP Nurse Practitioner Family; Visit Provider Nurse Practitioner Family
DX: E78.00 Pure hypercholesterolemia, unspecified (principal)